=== PATIENT | female | born 1975 | race Caucasian/White ===

== ENCOUNTER 2020-03-05 14:23 | Outpatient (REF) | payer BC, SELFPAY ==
--- NOTE | 2020-03-05 | US_ITS ---
EXAMINATION: PELVIC ULTRASOUND CLINICAL INFORMATION: Irregular menses COMPARISON: None TECHNIQUE: Transabdominal and transvaginal pelvic ultrasound was performed. Transvaginal exam was performed for better visualization of the uterus and ovaries. FINDINGS: The uterus is anteverted and anteflexed and measures 7.3 x 3.9 x 4.5 cm in dimension. No focal uterine lesion is seen. Endometrial thickness is normal as measuring 0.6 cm. There is a small amount of fluid in the endocervical canal. The right ovary measures 4 x 2.8 x 1.9 cm and contains a complex cyst with septations and some wall thickening that measures 1.7 x 1.5 x 2.2 cm. The left ovary is normal-appearing and measures 2.8 x 1.5 x 2 cm. There is no fluid in the pelvis. IMPRESSION: 1.7 x 1.5 x 2.2 cm complex right ovarian cyst otherwise unremarkable exam.
== END 2020-03-05 14:24 | disposition home or self-care (01) ==
LOC: HO.US 14:23
PROVIDERS: Visit Provider Advanced Practice Midwife
DX: N92.6 Irregular menstruation, unspecified (principal); N83.291 Other ovarian cyst, right side
CPT/HCPCS: 76830; 76856

== ENCOUNTER 2020-03-16 16:23 | Outpatient (REF) | payer BC, SELFPAY ==
[2020-03-20 22:56] LABS: CA-125 6 U/mL (<35)
== END 2020-03-16 16:24 | disposition home or self-care (01) ==
LOC: HO.LAB 16:23
PROVIDERS: PCP Internal Medicine; Visit Provider Advanced Practice Midwife
DX: N83.291 Other ovarian cyst, right side (principal)
CPT/HCPCS: 86304

== ENCOUNTER 2020-05-10 11:15 | Outpatient (REF) | payer BC, SELFPAY ==
--- NOTE | 2020-05-10 | US_ITS ---
EXAMINATION: ULTRASOUND PELVIS COMPLETE. CLINICAL INFORMATION: Ovarian cyst. COMPARISON: None TECHNIQUE: Transabdominal and transvaginal ultrasound of the pelvis is performed. FINDINGS: The uterus is anteverted and anteflexed measuring 7.4 cm in length, 4.2 cm in AP and 5.1 cm in transverse dimension. Endometrial thickness is 0.5 cm. There are small nabothian cysts seen in the cervix. Right ovary measures 3.9 x 3.1 x 2.3 cm and volume 14.6 mL. There is an anechoic cyst with septation measuring 3.0 x 2.0 x 2.5 cm. There is a small echogenic focus seen. Previously right ovary measured 4.0 x 2.8 x 1.9 cm. Left ovary measures 3.3 x 2.4 x 1.9 cm and volume 7.9 mL. Small corpus luteal cyst is seen measuring 1.9 x 1.4 x 1.6 cm. There are small echogenic foci seen. There is no free fluid in the cul-de-sac. US/US transvaginal IMPRESSION: Unremarkable uterus. Complex cyst right ovary. Corpus luteal cyst left ovary. Small echogenic foci/calcifications seen in both ovaries.
--- NOTE | 2020-05-10 | US_ITS ---
EXAMINATION: ULTRASOUND PELVIS COMPLETE. CLINICAL INFORMATION: Ovarian cyst. COMPARISON: None TECHNIQUE: Transabdominal and transvaginal ultrasound of the pelvis is performed. FINDINGS: The uterus is anteverted and anteflexed measuring 7.4 cm in length, 4.2 cm in AP and 5.1 cm in transverse dimension. Endometrial thickness is 0.5 cm. There are small nabothian cysts seen in the cervix. Right ovary measures 3.9 x 3.1 x 2.3 cm and volume 14.6 mL. There is an anechoic cyst with septation measuring 3.0 x 2.0 x 2.5 cm. There is a small echogenic focus seen. Previously right ovary measured 4.0 x 2.8 x 1.9 cm. Left ovary measures 3.3 x 2.4 x 1.9 cm and volume 7.9 mL. Small corpus luteal cyst is seen measuring 1.9 x 1.4 x 1.6 cm. There are small echogenic foci seen. There is no free fluid in the cul-de-sac. US/US pelvic complete IMPRESSION: Unremarkable uterus. Complex cyst right ovary. Corpus luteal cyst left ovary. Small echogenic foci/calcifications seen in both ovaries.
== END 2020-05-10 11:16 | disposition home or self-care (01) ==
LOC: HO.US 11:15
PROVIDERS: Visit Provider Obstetrics & Gynecology Gynecologic Oncology
DX: N83.291 Other ovarian cyst, right side (principal)
CPT/HCPCS: 76830; 76856

== ENCOUNTER 2020-09-22 08:19 | Outpatient (REF) | payer BC, SELFPAY ==
--- NOTE | ~2020-09-22 | MM_ITS ---
EXAMINATION: MM SCREENING DIGITAL BREAST TOMOSYNTHESIS, BILATERAL CLINICAL INFORMATION: Screening. Asymptomatic. Age 45. No prior breast imaging. No known family history breast cancer. The lifetime risk of breast cancer based on the Tyrer-Cuzick Model is 11%. COMPARISON: None (current study represents initial baseline exam). TECHNIQUE: Digital breast tomosynthesis is performed in both the craniocaudal and mediolateral oblique views along with computer-aided detection (CAD). Synthesized 2D images are generated from the tomosynthesis. FINDINGS: There are scattered areas of fibroglandular density (ACR BI-RADS breast composition Category b). The left breast has a smooth nodule mid 6:00 position approximately 0.6 cm size. The right breast has a smooth nodule anterior lower inner quadrant, also around 0.6 cm. Other smaller fibronodular densities are present on each side. There is no architectural abnormality. No abnormal calcifications. The axilla and skin contours are unremarkable. MM/MM tomosynthesis screening BI IMPRESSION: Bilateral solitary smooth nodularity mid 6:00 left breast and anterior lower inner right breast, respectively. As this represents initial baseline exam, patient will be recalled for targeted ultrasound to fully characterize. ASSESSMENT: BI-RADS 0: Incomplete - Need Additional Imaging Evaluation RECOMMENDATION: 1. Bilateral targeted breast ultrasound. 2. Radiology department staff will contact the patient for additional imaging. This patient's information was entered into a reminder system with a target due date for their next mammogram.
== END 2020-09-22 08:20 | disposition home or self-care (01) ==
LOC: HO.MAMMO 08:19
PROVIDERS: PCP Advanced Practice Midwife; Visit Provider Advanced Practice Midwife
DX: Z12.31 Encounter for screening mammogram for malignant neoplasm of breast (principal)
CPT/HCPCS: 77063; 77067

== ENCOUNTER 2020-10-03 14:25 | Outpatient (REF) | payer BC, SELFPAY ==
--- NOTE | ~2020-10-03 | US_ITS ---
EXAMINATION: US DIAGNOSTIC ULTRASOUND BREAST, RIGHT US DIAGNOSTIC ULTRASOUND BREAST, LEFT CLINICAL INFORMATION: Recall from baseline exam for small circumscribed nodule mid 6:00 left breast and small circumscribed nodule anterior lower inner right breast, respectively. Prior history reduction mammoplasty 2002. COMPARISON: Baseline mammography 09/22/2020. TECHNIQUE: Ultrasound of each breast is targeted to the areas of mammographic concern. Grayscale imaging and color Doppler are performed without and with harmonics. FINDINGS: Right: There is a simple cyst 6:00 position 2 cm from nipple measuring just under 6 mm in greatest dimension. There is increased through-transmission of sound. No associated color flow. Left: There is a simple cyst 6:00 position 6 cm from nipple also measuring just under 6 mm in greatest dimension. There is increased through-transmission of sound. No associated color flow. Neither breast shows solid mass or architectural abnormality or focal duct ectasia. No edema tracking in soft tissue planes. Results are discussed with the patient at time of visit. US/US breast LT limited IMPRESSION: Bilateral subcentimeter simple cysts corresponding to finding on recent baseline mammography. ASSESSMENT: BI-RADS 2: Benign RECOMMENDATION: Routine annual mammography screening. This patient's information was entered into a reminder system with a target due date for their next mammogram.
--- NOTE | ~2020-10-03 | US_ITS ---
Diagnostic right breast ultrasound is described in a single combined report with the diagnostic left breast ultrasound under accession number [id number].
== END 2020-10-03 14:26 | disposition home or self-care (01) ==
LOC: HO.MAMMO 14:25
PROVIDERS: Visit Provider Advanced Practice Midwife
DX: N63.10 Unspecified lump in the right breast, unspecified quadrant (principal); N63.20 Unspecified lump in the left breast, unspecified quadrant
CPT/HCPCS: 76642

== ENCOUNTER 2021-06-04 13:38 | Outpatient (REF) | payer BC, SELFPAY ==
[2021-06-11 03:12] LABS: HPV mRNA E6/E7 rflx Not Detected (Not Detected)
== END 2021-06-04 13:39 | disposition home or self-care (01) ==
LOC: HO.LAB 13:38
PROVIDERS: Visit Provider Advanced Practice Midwife
DX: Z01.419 Encounter for gynecological examination (general) (routine) without abnormal findings (principal); F41.8 Other specified anxiety disorders; Z79.899 Other long term (current) drug therapy
CPT/HCPCS: 87624; 88142

== ENCOUNTER 2021-09-25 09:13 | Outpatient (REF) | payer BC, SELFPAY ==
--- NOTE | ~2021-09-25 | MM_ITS ---
EXAMINATION: MM SCREENING DIGITAL BREAST TOMOSYNTHESIS, BILATERAL CLINICAL INFORMATION: Screening. Asymptomatic. The lifetime risk of breast cancer based on the Tyrer-Cuzick Model is 10%. COMPARISON: Mammography: 09/22/2020 (baseline); bilateral targeted breast ultrasound 10/03/2020. TECHNIQUE: Digital breast tomosynthesis is performed in both the craniocaudal and mediolateral oblique views along with computer-aided detection (CAD). Synthesized 2D images are generated from the tomosynthesis. FINDINGS: There are scattered areas of fibroglandular density (ACR BI-RADS breast composition Category b). Parenchymal pattern is similar to initial baseline exam. There is no developing density or interval mass or architectural abnormality. No abnormal calcifications. The small cyst mid 6:00 left breast and lower inner right breast are both slightly decreased in size from baseline exam. The axilla and skin contours are unremarkable. MM/MM tomosynthesis screening BI IMPRESSION: No mammographic evidence of malignancy. ASSESSMENT: BI-RADS 2: Benign RECOMMENDATION: Routine annual mammography screening. This patient's information was entered into a reminder system with a target due date for their next mammogram.
== END 2021-09-25 09:14 | disposition home or self-care (01) ==
LOC: HO.MAMMO 09:13
PROVIDERS: PCP Internal Medicine; Visit Provider Advanced Practice Midwife
DX: Z12.31 Encounter for screening mammogram for malignant neoplasm of breast (principal)
CPT/HCPCS: 77063; 77067

== ENCOUNTER → 2022-08-05 10:34 | Outpatient (BNVA) | payer BC, SELFPAY | PROVIDERS: PCP Internal Medicine; Visit Provider Advanced Practice Midwife | DX: Z13.89 Encounter for screening for other disorder (principal) ==

== ENCOUNTER 2022-08-13 12:56 | Outpatient (REF) | payer BC, SELFPAY ==
--- NOTE | ~2022-08-13 | US_ITS ---
EXAMINATION: US PELVIS CLINICAL INFORMATION: Right-sided ovarian cyst. COMPARISON: None available. TECHNIQUE: Ultrasound of the pelvis is performed using both transabdominal and transvaginal transducers along with Doppler. Transvaginal imaging is performed due to inadequate visualization transabdominally. FINDINGS: UTERUS: The uterus is anteverted and measures 5.9 x 3.5 x 4.5 cm. The double wall endometrial thickness is 0.5 mm. The uterus is smooth in contour and has normal myometrial echogenicity. No visible fibroid. ADNEXA: Both ovaries are visualized. There is normal color flow to the adnexa. There is no ovarian torsion. There is no pelvic ascites or fluid collection. Right ovary measures 2.4 x 0.9 x 2.0 cm for a volume of 2.3 mL and contains multiple subcentimeter cysts. The previously seen 3 cm complex septated cyst is no longer present. Multiple tiny echogenic foci are seen in the ovary some with twinkle artifact. Left ovary measures 3.6 x 1.4 x 3.0 cm for a volume of 7.9 mL and straight multiple cysts the largest 1.1 cm. Multiple tiny echogenic foci are seen within the ovary. US/US pelvic and transvaginal IMPRESSION: 1. Normal-appearing uterus. 2. Resolved right complex ovarian cyst 3. Multiple tiny small physiologic cysts and echogenic foci in both ovaries.
== END 2022-08-13 12:57 | disposition home or self-care (01) ==
LOC: HO.HMGCX 12:56
PROVIDERS: PCP Internal Medicine; Visit Provider Advanced Practice Midwife
DX: N83.291 Other ovarian cyst, right side (principal)
CPT/HCPCS: 76830; 76856

== ENCOUNTER → 2022-08-25 11:21 | Outpatient (BNVA) | payer BC, SELFPAY | PROVIDERS: PCP Internal Medicine; Visit Provider Advanced Practice Midwife | DX: Z13.89 Encounter for screening for other disorder (principal) ==

== ENCOUNTER 2022-10-01 08:07 | Outpatient (REF) | payer BC, SELFPAY ==
--- NOTE | ~2022-10-01 | MM_ITS ---
EXAMINATION: MM SCREENING DIGITAL BREAST TOMOSYNTHESIS, BILATERAL CLINICAL INFORMATION: Screening. Asymptomatic. Prior history reduction mammoplasty, 2002. The lifetime risk of breast cancer based on the Tyrer-Cuzick Model is 10%. COMPARISON: Mammography: 09/25/2021, 09/22/2020 (baseline); bilateral targeted breast ultrasound 10/03/2020. TECHNIQUE: Digital breast tomosynthesis is performed in both the craniocaudal and mediolateral oblique views along with computer-aided detection (CAD). Synthesized 2D images are generated from the tomosynthesis. FINDINGS: There are scattered areas of fibroglandular density (ACR BI-RADS breast composition Category b). Left breast has new smooth oval 5 mm nodule anterior 7:00 position residing just anterior medial to a known simple cyst 6:00 position. This likely represents another cyst. Patient will be recalled for targeted ultrasound. Left breast incidental simple cyst 6:00 position is decreased in size 2020. Right breast incidental simple cyst anterior lower inner breast which is slightly increased. No architectural abnormality or abnormal calcifications. The axilla and skin contours are unremarkable. MM/MM tomosynthesis screening BI IMPRESSION: Left: -New smooth oval nodule 0.5 cm anterior 7:00 position, likely a cyst. Right: -No mammographic evidence of malignancy. ASSESSMENT: BI-RADS 0: Incomplete - Need Additional Imaging Evaluation RECOMMENDATION: 1. Targeted ultrasound left breast. 2. Radiology department staff will contact the patient for additional imaging. This patient's information was entered into a reminder system with a target due date for their next mammogram.
== END 2022-10-01 08:08 | disposition home or self-care (01) ==
LOC: HO.MAMMO 08:07
PROVIDERS: PCP Internal Medicine; Referring Provider Advanced Practice Midwife; Visit Provider Internal Medicine
DX: Z12.31 Encounter for screening mammogram for malignant neoplasm of breast (principal)
CPT/HCPCS: 77063; 77067

== ENCOUNTER 2022-10-10 13:04 | Outpatient (REF) | payer BC, SELFPAY ==
--- NOTE | ~2022-10-10 | US_ITS ---
EXAMINATION: US DIAGNOSTIC ULTRASOUND BREAST, LEFT CLINICAL INFORMATION: Recall from screening for smooth nodule anterior inferior left breast, likely cyst. COMPARISON: Mammography 10/01/2022, 09/25/2021, breast ultrasound 10/03/2020. TECHNIQUE: Ultrasound left breast is targeted to the inferior breast using grayscale imaging and color Doppler. FINDINGS: There is a small oval cyst 5 x 4 x 3 mm anterior inferior left breast corresponding to the recent mammography. There is increased through-transmission of sound. No associated color flow. No solid mass or architectural abnormality. Results are discussed with the patient at time of visit. US/US breast LT limited IMPRESSION: Small cyst anterior inferior left breast corresponding to recent mammography. ASSESSMENT: BI-RADS 2: Benign RECOMMENDATION: Routine annual mammography screening. This patient's information was entered into a reminder system with a target due date for their next mammogram.
== END 2022-10-10 13:05 | disposition home or self-care (01) ==
LOC: HO.MAMMO 13:04
PROVIDERS: PCP Internal Medicine; Visit Provider Internal Medicine
DX: N60.02 Solitary cyst of left breast (principal)
CPT/HCPCS: 76642

== ENCOUNTER → 2023-10-05 08:00 | Outpatient (BNV) | payer BC, SELFPAY | PROVIDERS: PCP Student in an Organized Health Care Education/Training Program; Visit Provider Radiology Diagnostic Radiology | DX: Z12.31 Encounter for screening mammogram for malignant neoplasm of breast (principal) | CPT/HCPCS: 77063; 77067 ==

== ENCOUNTER 2023-10-05 08:04 | Outpatient (REF) | payer BC, SELFPAY ==
--- NOTE | ~2023-10-05 | MM_ITS ---
EXAMINATION: MM SCREENING DIGITAL BREAST TOMOSYNTHESIS, BILATERAL CLINICAL INFORMATION: Screening. Asymptomatic. The patient is status post breast reduction. COMPARISON: Mammography: This study is compared with prior exams dating back to 2020. TECHNIQUE: Digital breast tomosynthesis is performed in both the craniocaudal and mediolateral oblique views along with computer-aided detection (CAD). Synthesized 2D images are generated from the tomosynthesis. FINDINGS: There are scattered areas of fibroglandular density (ACR BI-RADS breast composition Category b). There are no significant masses, abnormal calcifications, or other abnormalities. MM/MM tomosynthesis screening BI IMPRESSION: No mammographic evidence of malignancy. ASSESSMENT: BI-RADS BI-RADS 1 - Negative RECOMMENDATION: Routine annual mammography screening. 1 year F/U This examination should not preclude the clinical evaluation of a suspicious palpable abnormality. This patient's information was entered into a reminder system with a target due date for their next mammogram.
== END 2023-10-05 08:05 | disposition home or self-care (01) ==
LOC: HO.MAMMO 08:04
PROVIDERS: PCP Student in an Organized Health Care Education/Training Program; Visit Provider Internal Medicine
DX: Z12.31 Encounter for screening mammogram for malignant neoplasm of breast (principal)
CPT/HCPCS: 77063; 77067

== ENCOUNTER 2023-12-18 13:30 | Outpatient (AMB) | payer BC, SELFPAY ==
--- NOTE | 2023-12-18 13:32 | MHC.OFFVIS ---
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 Doing well with no concerns. She tries to eat healthy and stays active with exercise. Admits to vaping with nicotine. She denies any contraindications to control such as: migraines with aura, history of DVT or pulmonary emboli, high blood pressure, liver disease, thrombolic disorders, Lupus, +CATA, or breast cancer. Currently on [place]. Admits to abnormal bleeding cycles when she forgets her pill and has done that is several times over the last few months. Rarely sexually active and not concerned about risks. She denies vaginal itching and irritation. STI screening offered; she accepts. Denies family history of breast or colon cancer. breast cancer-[facility] [place]. Last pap smear 2020, negative. Mammogram: 2023. [facility] Medical History Bilateral breast cysts ROSEY III (cervical intraepithelial neoplasia III) Migraine with aura Exercise-induced asthma Ankylosing spondylitis Depression with anxiety Complex cyst of right ovary Surgical History History of loop electrical excision procedure (LEEP) Hx of bilateral breast reduction surgery H/O wrist surgery Family History Maternal Grandmother Ovarian cancer Throat cancer Social History (Updated 12/18/23 @ 14:38 by Lorin Noe CNM) Alcohol intake: never Patient Tobacco Use Status: Never used Tobacco e-Cigarette/Vaping Use: Currently Using Sexual orientation: Straight/Heterosexual Gender identity: Female Female Reproductive History Menstrual Duration of menses: 6-7 days Date of last menstrual period: 11/19/23 Total pregnancies: 2 Full term: 1 Number of Living Children: 1 Date of last pap smear: 06/04/21 (neg pap and hpv) History of abnormal pap smear: Yes (03/20 ascus +hpv 05/20 colpo rosey 3 06/21 leep rosey 2) Date of Mammogram: 10/05/23 (Birad 1) Review of Systems Const All systems reviewed & are unremarkable except as noted in HPI and below Reports as per HPI Eyes Reports no additional complaints ENT Reports no additional complaints Card Reports no additional complaints Resp Reports no additional complaints GI Reports as per HPI and Reports no additional complaints Reports as per HPI Musc Reports no additional complaints Skin/Breast Reports as per HPI Neuro Reports no additional complaints Psych Reports no additional complaints Endo Reports no additional complaints Max/Lymph Reports no additional complaints Aller/Immun Reports no additional complaints Physical Exam Vital Signs: Last Vital Signs BP 120/84 12/18/23 13:40 BMI result Body Mass Index 34.2 Const General: cooperative, healthy appearing, no acute distress, well developed and alert Orientation/consciousness: patient oriented x3 HEENT Head: Yes normal to inspection Eyes General: appearance normal, both eyes and all related structures Neck Neck: Yes normal visual inspection Thyroid: Thyroid normal Chest Chest palpation & inspection: normal inspection of the chest and other (no puckering, dimpling, peau de orange, retraction, discharge, masses) Breast/axilla inspection: normal inspection of the breasts Breast/axilla palpation: normal palpation of the breasts Resp Effort & Inspection: normal respiratory effort GI Inspection: Yes normal to inspection Palpation (GI): Soft to palpation Rectal Exam - Female: deferred General: Yes bladder normal to palpation External Female Exam: normal external appearance and normal appearance of the urethra Speculum Exam - Vagina: normal appearance of the vagina, normal palpation and normal vaginal discharge Speculum Exam - Cervix: normal appearance of the cervix and normal palpation Bimanual exam- vagina & uterus: normal bimanual exam, normal palpation, uterine size normal, bladder normal to palpation, normal palpation and non-tender Bimanual Exam- Adnexa, other: no masses Skin General skin exam: no rashes or lesions noted Rashes: no rashes Neuro General: patient oriented x3 Cognition (Neuro): normal cognition Extrem General: Yes normal to inspection Psych Attitude: cooperative Thought process: Normal thought process present Assessment & Plan Assessment & Plan (1) Encounter for well woman exam with routine gynecological exam: Code(s): Z01.419 - Encounter for gynecological examination (general) (routine) without abnormal findings Category: Medical Plan Discussed: Current recommendations for pap smears per ASCCP guidelines. Breast awareness and periodic breast exams. Maintain a healthy lifestyle including a well balanced diet and routine exercise. Mammogram yearly. Plan pelvic ultrasound to observe for any abnormalities including polyps or fibroids, follow up for test results in person. Most likely bleeding is due to missed pills, advised to consider other control measures like a Mirena IUD. Colonoscopy >45, or at risk sooner. control hormone use warnings: go to ER if and loss of vision, blindness, severe headache, chest pain or difficulty breathing, severe abdominal pain, or any pain or swelling in an extremity. Patient verbalizes understanding and agrees to the plan of care. She was given opportunity to ask questions and all questions were answered to the best of my ability. 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 This note is constructed using voice recognition software. While every effort has been made to ensure accuracy, chief cook errors may have been included. Orders: Orders Bacterial Vaginosis Panel Today N93.9 - Abnormal uterine and vaginal bleeding, unspecified US pelvic and transvaginal Today N93.9 - Abnormal uterine and vaginal bleeding, unspecified PAP + HPV E6/E7 rfx 18/45 Today Z01.419 - Encounter for gynecological examination (general) (routine) without abnormal findings CT NG by PCR Today N93.9 - Abnormal uterine and vaginal bleeding, unspecified Medications: Refilled norethindrone (contraceptive) 0.35 mg PO DAILY 90 tabs 4RF Coding Level of Care Code Est Pt Prev Care 40-64y(72521) Diagnoses Encounter for well woman exam with routine gynecological exam Z01.419
[2023-12-18 13:40] VITALS: BP 120/84; BMI 34.2
== END 2023-12-18 14:21 | disposition home or self-care (01) ==
PROVIDERS: PCP Student in an Organized Health Care Education/Training Program; Visit Provider Advanced Practice Midwife
DX: Z01.419 Encounter for gynecological examination (general) (routine) without abnormal findings (principal)
CPT/HCPCS: 99396

== ENCOUNTER 2023-12-18 13:30 | Outpatient (REF) | payer BC, SELFPAY ==
[2023-12-19 05:45] LABS: CT PCR NOT DETECTED (Not Detect.); NG PCR NOT DETECTED (Not Detect.)
[2023-12-19 09:49] LABS: Bacterial Vaginosis PCR NEGATIVE (Negative); Candida Group PCR NOT DETECTED (Not Detect); Candida glab krusei PCR NOT DETECTED (Not Detect); Trichomonas vaginalis PCR NOT DETECTED (Not Detect)
[2023-12-22 09:58] LABS: HPV mRNA E6/E7 Not Detected (Not Detected)
== END 2023-12-18 13:31 | disposition home or self-care (01) ==
LOC: HO.LAB 13:30
PROVIDERS: PCP Student in an Organized Health Care Education/Training Program; Visit Provider Advanced Practice Midwife
DX: Z01.419 Encounter for gynecological examination (general) (routine) without abnormal findings (principal); Z11.51 Encounter for screening for human papillomavirus (HPV); N93.9 Abnormal uterine and vaginal bleeding, unspecified; Z20.2 Contact with and (suspected) exposure to infections with a predominantly sexual mode of transmission
CPT/HCPCS: 0352U; 36415; 87491; 87591; 87624; 88175

== ENCOUNTER 2023-12-18 14:09 | Outpatient (REF) | payer BC, SELFPAY | END 2023-12-18 14:10 | disposition home or self-care (01) | LOC: HO.LNP 14:09 | PROVIDERS: Visit Provider Advanced Practice Midwife | DX: Z13.89 Encounter for screening for other disorder (principal) ==

== ENCOUNTER 2023-12-22 13:50 | Outpatient (REF) | payer BC, SELFPAY ==
--- NOTE | ~2023-12-22 | US_ITS ---
EXAMINATION: US PELVIS CLINICAL INFORMATION: Dysfunctional uterine bleeding. LMP early November. COMPARISON: 08/13/2022 TECHNIQUE: Ultrasound of the pelvis is performed using both transabdominal and transvaginal transducers along with Doppler. Transvaginal imaging is performed due to inadequate visualization transabdominally. FINDINGS: Uterus: The uterus is anteverted and retroflexed. The uterus measures 7.5 x 3.8 x 4.8 cm. Uterine echotexture is heterogeneous. The endometrial stripe measures 0.5 cm in thickness. Adnexa: The right ovary measures 2.7 x 1.5 x 2.2 cm for a volume of 4.7 mL. There are few echogenic foci in the right ovary. The left ovary measures 2.0 x 1.1 x 1.4 cm for a volume of 1.6 mL. There are few echogenic foci in the left ovary. No free fluid in the pelvis or focal fluid collection. US/US pelvic and transvaginal IMPRESSION: Heterogeneous myometrium.
== END 2023-12-22 13:51 | disposition home or self-care (01) ==
LOC: HO.US 13:50
PROVIDERS: PCP Student in an Organized Health Care Education/Training Program; Visit Provider Advanced Practice Midwife
DX: N93.9 Abnormal uterine and vaginal bleeding, unspecified (principal)
CPT/HCPCS: 76830; 76856

== ENCOUNTER 2024-04-13 10:57 | Outpatient (AMB) | payer BC, SELFPAY ==
--- NOTE | 2024-04-13 10:59 | MHC.OFFVIS ---
Vital Signs 04/13/24 11:00 Height 5 ft 8 in Weight 226 lb 6 oz BMI 34.4 BP 138/78 Blood Pressure Location Lt brachial Position Sitting Intake Visit Reasons: Ultra sound follow up/ emb Skip Tender Required: No Hand Engraver: Hand Engraver Present Allergies nitrofurantoin Allergy (Severe, Verified 12/18/23 13:45) Facial Swelling hydrocodone [Vicodin] Allergy (Unknown, Verified 12/18/23 13:40) itchy/vomit morphine [Morphine] Allergy (Unknown, Verified 12/18/23 13:40) ITCHING, itchy/vomit Is last menstrual period known: Yes Last menstrual period: 03/30/24 Post menopausal: Yes Patient : No Do you need a note to return to daycare/school/sports/work: No HPI Comments Details: Patient is here today for a follow up pelvic ultrasound. History of abnormal bleeding cycles after forgetting her control pills-currently taking progesterone only brand. Taking progesterone only pills due to history of migraines with aura. She is currently not interested in changing to a Mirena IUD. She reports now that she has focused and been able to take her pill on time she has not had any further bleeding issues. Previous home test was negative. Current vape user, interested in quitting. Has a new job she is hoping her stress will improve. [facility] Medical History Bilateral breast cysts ROSEY III (cervical intraepithelial neoplasia III) Migraine with aura Exercise-induced asthma Ankylosing spondylitis Depression with anxiety Surgical History History of loop electrical excision procedure (LEEP) Hx of bilateral breast reduction surgery H/O wrist surgery Family History Maternal Grandmother Ovarian cancer Throat cancer Social History Alcohol intake: never Patient Tobacco Use Status: Never used Tobacco e-Cigarette/Vaping Use: Currently Using Sexual orientation: Straight/Heterosexual Gender identity: Female Female Reproductive History Menstrual Date of last menstrual period: 03/30/24 control method: pills Total pregnancies: 2 Full term: 1 Number of Living Children: 1 Ab induced: 1 History of STI: No History of abnormal mammogram: No Review of Systems Const All systems reviewed & are unremarkable except as noted in HPI and below Endo Reports no additional complaints Physical Exam Const General: cooperative, healthy appearing and no acute distress Psych Appearance: well kempt Attitude: cooperative Thought process: Normal thought process present Results AMB Test Urine AMB Test Urine Negative Last Edit by Lindsey Wesley LPN on 04/13/24 11:17 Results Reviewed Results Reviewed: [address] [address] Ultrasound Report Signed Patient: Lindsey Aguilar MR#: [id number] : 1975 Acct:[id number] Age/Sex: 48 / F ADM Date: 12/22/23 Loc: HO.US Attending Dr: Lorin Noe CNM Ordering Physician: Lorin Noe CNM Date of Service: 12/22/23 Procedure(s): US pelvic and transvaginal Accession Number(s): [id number] cc: Sylvia Matthews MD; Lorin Noe CNM~ EXAMINATION: US PELVIS CLINICAL INFORMATION: Dysfunctional uterine bleeding. LMP early November. COMPARISON: 08/13/2022 TECHNIQUE: Ultrasound of the pelvis is performed using both transabdominal and transvaginal transducers along with Doppler. Transvaginal imaging is performed due to inadequate visualization transabdominally. FINDINGS: Uterus: The uterus is anteverted and retroflexed. The uterus measures 7.5 x 3.8 x 4.8 cm. Uterine echotexture is heterogeneous. The endometrial stripe measures 0.5 cm in thickness. Adnexa: The right ovary measures 2.7 x 1.5 x 2.2 cm for a volume of 4.7 mL. There are few echogenic foci in the right ovary. The left ovary measures 2.0 x 1.1 x 1.4 cm for a volume of 1.6 mL. There are few echogenic foci in the left ovary. No free fluid in the pelvis or focal fluid collection. US/US pelvic and transvaginal IMPRESSION: Heterogeneous myometrium. 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 Continue taking POP on time report any unscheduled bleeding. Safe sex condoms if indicated, UPT if indicated with any missed pills. Annual exam scheduled 12/18/2024. Mammogram scheduled 10/18/2024. Encouraged to stop vaping and use other alternatives for stress reduction and coping- she prefers to be outside in nature andreading books. All of her questions and concerns were addressed to the best of my ability and shared decision making. She is agreeable to the plan of care. This note is constructed using voice recognition software. While every effort has been made to ensure accuracy, airplane gas tank liner assembler errors may have been included. Coding Level of Care Code Est Pt Level 3 (23208) Diagnoses Encounter to discuss test results Z71.2
[2024-04-13 11:00] VITALS: BP 138/78; BMI 34.4
== END 2024-04-13 12:43 | disposition home or self-care (01) ==
LOC: HO.HWS 10:57
PROVIDERS: PCP Student in an Organized Health Care Education/Training Program; Visit Provider Advanced Practice Midwife
DX: Z71.2 Person consulting for explanation of examination or test findings (principal)
CPT/HCPCS: 99213

== ENCOUNTER → 2024-10-10 08:15 | Outpatient (BNV) | payer BC, SELFPAY | PROVIDERS: PCP Student in an Organized Health Care Education/Training Program; Visit Provider Internal Medicine | DX: Z12.31 Encounter for screening mammogram for malignant neoplasm of breast (principal) | CPT/HCPCS: 77063; 77067 ==

== ENCOUNTER 2024-10-10 08:16 | Outpatient (REF) | payer BC, SELFPAY ==
--- OUTSIDE RECORDS SUMMARY | 2024-10-10 08:20 | XMS_ITS | Data Portability ---
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 Patient consented to video & audio visit Patient was located at at home Provider was located in the office. No other persons participated in the telemedicine visit except for the patient unless otherwise indicated here. {{}} Total time of visit was 22 minutes. [email or web address] Not available 07/15/2021 15:43:18 07/31/2021 07/31/2021 This service was provided using telemedicine. Patient consented to video & audio visit Patient was located at at home Provider was located in the office. No other persons participated in the telemedicine visit except for the patient unless otherwise indicated here. {{}} Total time of visit was 22 minutes. [email or web address] Not available 07/31/2021 16:33:28 06/08/2024 06/08/2024 Discussed with patient the signs/symptoms warranted for a return to office visit and/or an ER visit. Patient understood and agreed with the plan. [email or web address] Not available 06/08/2024 13:34:47 Plan of Treatment Reminders Order Date Submit Date Provider Last Modified By Organization Details Last Modified Time Details Appointments FOLLOW UP 1 2024 02:45P Jr WOO MD Not available Not available Not available Lab lipid panel, serum 2024 025 NEW [facility], [address], [place], [address], 08/01/2024 13:28:54 BMP, serum or plasma 2024 025 NEW [facility], [address], [place], [address], 08/01/2024 13:28:53 CBC w/ auto diff 2024 025 NEW [facility], [address], [place], [address], 08/01/2024 13:28:53 TSH, ultra-sen sitive, serum 2024 025 NEW [facility], [address], [place], [address], 08/01/2024 13:28:54 beta-HCG, qualitati ve, serum or plasma 2024 025 NEW [facility] (Centralized Electronic Ordering - All Locations), Patient Can Go To The Location Of Their Choice, [id number] 06/09/2024 08:08:33 strep group A, DNA, swab 2024 025 NEW In-Office Order, Internal Use Only DO Not Attach Compendium DO Not Attach Compendium, Do Not Delete/merge, [id number] 06/08/2024 13:46:30 ESR (erythroc yte sedimenta tion rate), blood 2022 023 NEW [facility], [address], [address], [place], [address], 04/01/2023 04:19:48 C-reactiv e protein, quantitat lissette, serum or plasma 2022 023 NEW [facility], [address], [address], [place], [address], 04/01/2023 03:51:29 lipid panel, serum 2022 023 NEW [facility], [address], [address], [place], [address], 04/01/2023 03:51:31 BMP, serum or plasma 2022 023 NEW [facility], [address], [address], [place], [address], 04/01/2023 03:51:27 CBC w/ auto diff 2022 023 [facility], [address], [address], [place], [address], 04/01/2023 02:54:07 TSH, serum or plasma 2022 023 NEW [facility], [address], [address], [place], [address], 04/01/2023 03:55:56 hepatitis C virus Ab, serum 2022 023 [facility], [address], [address], [place], [address], 04/03/2023 07:07:28 urinalysi s, complete 2021 022 [facility], [address], [address], [place], [address], 07/31/2021 20:00:27 culture, urine 2021 022 NEW [facility], [address], [address], [place], [address], 08/01/2021 19:52:15 Referral rheumatol ogist referral - ankylosin g spondylit is. please evaluate 2021 022 [email or web address] Russ Peña MD, [address], [place], [address], 07/16/2021 09:17:31 Procedures colonosco py screening (PROC) 2024 025 [email or web address] Not available 08/01/2024 13:50:10 colonosco py screening (PROC) 2022 023 [email or web address] [facility], [address] [place], [address], 03/31/2023 11:35:55 Surgeries None recorded. Imaging MAMMO, screening , bilateral 2024 025 [email or web address] Not available 08/01/2024 13:34:47 Medication Orders ProAir HFA 90 mcg/actua tion aerosol inhaler 2024 025 [id number], [address], [place], [id number], 08/01/2024 13:29:04 betametha sone dipropion ate 0.05 % topical ointment 2024 025 [facility], [address], [place], [id number], 08/01/2024 13:29:08 ondansetr on 4 mg disintegr ating tablet 2024 025 [email or web address] [facility] #48855, [address], [place], [id number], 06/08/2024 13:48:31 cyclobenz aprine 10 mg tablet 2022 023 [facility], [address], [place], [id number], 03/16/2023 14:49:39 buspirone 7.5 mg tablet 2022 023 [facility] #57994, [address], [place], [id number], 03/16/2023 19:48:11 sertralin e 100 mg tablet 2021 022 [email or web address] [facility] #02928, [address], [place], [id number], 08/01/2024 13:10:08 Patient TargetsNo targets recorded. Patient Instructions Encounter Date Encounter Id Patient Instructions Last Modified By Organization Details Last Modified Time 07/15/2021 [id number] ankylosing spondylitis: care instructions [email or web address] Not available 07/15/2021 15:55:26 ankylosing spondylitis: exercises [email or web address] Not available 07/15/2021 15:55:26 blood in the urine: care instructions [email or web address] Not available 07/15/2021 15:55:26 07/31/2021 [id number] anxiety disorder: care instructions [email or web address] Not available 07/31/2021 16:34:14 03/16/2023 [id number] Well Visit, Ages 18 to 65: Care Instructions Not available 03/16/2023 14:49:30 starting a weight loss plan: care instructions [email or web address] Not available 03/18/2023 09:38:30 08/01/2024 [id number] irritable bowel syndrome: care instructions Not available 08/01/2024 13:28:42 ankylosing spondylitis: care instructions Not available 08/01/2024 13:28:42 ankylosing spondylitis: exercises Not available 08/01/2024 13:28:41 starting a weight loss plan: care instructions Not available 08/01/2024 13:32:51 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 please evaluate Referring Physician: Milena Singleton, Family Medicine, Encounter Date: 07/15/2021 Results Created Date Observation Date Name Description Value Unit Range Abnormal Flag Note LastModifiedBy Organization Detail LastModifiedTime 07/09/19 22 07/09/2021 UA W/REF TAHIRA CULTU RE appear/color YELLO W TURBI D Not Available [facility] (Centralized Electronic Ordering - All Locations) Patient Can Go To The Location Of Their Choice, 07/09/2021 16:58:45 07/09/1907/09/2021 UA W/REF TAHIRA CULTU RE sp. gravity 1.027 (1.002 -1.030 ) Not Available [facility] (Centralized Electronic Ordering - All Locations) Patient Can Go To The Location Of Their Choice, 07/09/2021 16:58:45 07/09/1907/09/2021 UA W/REF TAHIRA CULTU RE urine pH 6.0 (5.0-8 .0) Not Available [facility] (Centralized Electronic Ordering - All Locations) Patient Can Go To The Location Of Their Choice, 07/09/2021 16:58:45 07/09/1907/09/2021 UA W/REF TAHIRA CULTU RE urine albumin 1+ (neg) abnormal Not Available [facility] ([facility] Order[facility] - All Locations) Patient Can Go To The Location Of Their Choice, 07/09/2021 16:58:45 07/09/1907/09/2021 UA W/REF TAHIRA CULTU RE urine glucose NEGATI VE (neg) Not Available [facility] (Centralized Electronic Ordering - All Locations) Patient Can Go To The Location Of Their Choice, 07/09/2021 16:58:45 07/09/1907/09/2021 UA W/REF TAHIRA CULTU RE urine ketones NEGATI VE (neg) Not Available [facility] (Centralized Electronic Ordering - All Locations) Patient Can Go To The Location Of Their Choice, 07/09/2021 16:58:45 07/09/1907/09/2021 UA W/REF TAHIRA CULTU RE urine bilirubin NEGATI VE (neg) Not Available [facility] (Centralized Electronic Ordering - All Locations) Patient Can Go To The Location Of Their Choice, 07/09/2021 16:58:45 07/09/1907/09/2021 UA W/REF TAHIRA CULTU RE urine hemoglobin 1+ (neg) abnormal Not Available [facility] ([facility] - All Locations) Patient Can Go To The Location Of Their Choice, 07/09/2021 16:58:45 07/09/1907/09/2021 UA W/REF TAHIRA CULTU RE urine nitrite NEGATI VE (neg) Not Available [facility] (Centralized Electronic Ordering - All Locations) Patient Can Go To The Location Of Their Choice, 07/09/2021 16:58:45 07/09/19 22 07/09/2021 UA W/REF TAHIRA CULTU RE urine leukocyte 1+ (neg) abnormal Not Available [facility] ([facility] Ordering - All Locations) Patient Can Go To The Location Of Their Choice, 07/09/2021 16:58:45 07/09/19 22 07/09/2021 UA W/REF TAHIRA CULTU RE urobilinogen NORMAL mg/dL (norm) Not Available [facility] (Central[facility] Ordering - All Locations) Patient Can Go To The Location Of Their Choice, 07/09/2021 16:58:45 07/09/19 22 07/09/2021 UA W/REF TAHIRA CULTU RE urine WBCs 6 /hpf (0-5) high Not Available [facility] (Centralized Electronic Ordering - All Locations) Patient Can Go To The Location Of Their Choice, 07/09/2021 16:58:45 07/09/19 22 07/09/2021 UA W/REF TAHIRA CULTU RE urine RBCs 4 /hpf (0-3) high Not Available [facility] (Centralized Electronic Ordering - All Locations) Patient Can Go To The Location Of Their Choice, 07/09/2021 16:58:45 07/09/19 22 07/09/2021 UA W/REF TAHIRA CULTU RE bacteria SLIGHT hpf (neg) abnormal Not Available [facility] (Centralized Electronic Ordering - All Locations) Patient Can Go To The Location Of Their Choice, 07/09/2021 16:58:45 07/09/19 22 07/09/2021 UA W/REF TAHIRA CULTU RE mucus SLIGHT /lpf Not Available [facility] (Centralized Electronic Ordering - All Locations) Patient Can Go To The Location Of Their Choice, 07/09/2021 16:58:45 07/09/19 22 07/09/2021 UA W/REF TAHIRA CULTU RE squamous epith 25 /hpf (0-8) high Not Available [facility] ([facility] Ordering - All Locations) Patient Can Go To The Location Of Their Choice, 07/09/2021 16:58:45 07/09/19 22 07/09/2021 UA W/REF TAHIRA CULTU RE clarity TURBID (clear ) abnormal Not Available [facility] (Centralized Electronic Ordering - All Locations) Patient Can Go To The Location Of Their Choice, 07/09/2021 16:58:45 07/09/19 22 07/09/2021 UA W/REF TAHIRA CULTU RE culture indication CULTUR E INDICA JOANN Not Available [facility] (Centralized Electronic Ordering - All Locations) Patient Can Go To The Location Of Their Choice, 07/09/2021 16:58:45 07/09/19 22 07/09/2021 LIPID PANEL cholesterol, total 197 mg/dL (<200) Not Available [facility] ([facility] Ordering - All Locations) Patient Can Go To The Location Of Their Choice, 07/09/2021 18:24:00 07/09/1907/09/2021 LIPID PANEL triglyceride 155 mg/dL (<150) high Not Available [facility] ([facility] Ordering - All Locations) Patient Can Go To The Location Of Their Choice, 07/09/2021 18:24:00 07/09/1907/09/2021 LIPID PANEL HDL chol 52 mg/dL (>39) Not Available [facility] (Centralized Electronic Ordering - All Locations) Patient Can Go To The Location Of Their Choice, 07/09/2021 18:24:00 07/09/1907/09/2021 LIPID PANEL LDL cholesterol, calculated 114 mg/dL (0-130 ) Not Available [facility] (Centralized Electronic Ordering - All Locations) Patient Can Go To The Location Of Their Choice, 07/09/2021 18:24:00 07/09/1907/09/2021 LIPID PANEL non HDL cholesterol (calc) 145 mg/dL (<160) Not Available [facility] ([facility] Ordering - All Locations) Patient Can Go To The Location Of Their Choice, 07/09/2021 18:24:00 07/09/1907/09/2021 FREE T4 free T4 0.79 NG/dL (0.70- 1.80) Not Available [facility] (Centralized Electronic Ordering - All Locations) Patient Can Go To The Location Of Their Choice, 07/09/2021 18:29:52 07/09/19 22 07/09/2021 TSH TSH 1.38 uIU/m L (0.4-4 .2) Not Available [facility] (Centralized Electronic Ordering - All Locations) Patient Can Go To The Location Of Their Choice, 07/09/2021 18:29:53 07/09/19 22 07/09/2021 URINE CULTU RE specimen description URINE Not Available [facility] ([facility] Locations) Patient Can Go To The Location Of Their Choice, 07/11/2021 07:19:56 07/09/19 22 07/09/2021 URINE CULTU RE special requests NONE Reflex ed from [id number] Not Available [facility] (Centralized Electronic Ordering - All Locations) Patient Can Go To The Location Of Their Choice, 07/11/2021 07:19:56 07/09/1907/11/2021 URINE CULTU RE culture Mixed bacter ial rafi, indica tive of urogen ital contam inatio n. Not Available [facility] (Centralized Electronic Ordering - All Locations) Patient Can Go To The Location Of Their Choice, 07/11/2021 07:19:56 07/09/1907/11/2021 URINE CULTU RE report status FINAL 2021 Not Available [facility] (Centralized Electronic Ordering - All Locations) Patient Can Go To The Location Of Their Choice, 07/11/2021 07:19:56 08/01/1907/31/2021 LAB ONLY URINA LYSIS appear/color YELLO W TURBI D Not Available [facility] (Centralized Electronic Ordering - All Locations) Patient Can Go To The Location Of Their Choice, 07/31/2021 20:00:27 08/01/19 22 07/31/2021 LAB ONLY URINA LYSIS sp. gravity 1.025 (1.002 -1.030 ) Not Available [facility] (Centralized Electronic Ordering - All Locations) Patient Can Go To The Location Of Their Choice, [id number] 07/31/2021 20:00:27 08/01/19 22 07/31/2021 LAB ONLY URINA LYSIS urine pH 6.0 (5.0-8 .0) Not Available [facility] (Centralized Electronic Ordering - All Locations) Patient Can Go To The Location Of Their Choice, 07/31/2021 20:00:27 08/01/19 22 07/31/2021 LAB ONLY URINA LYSIS urine albumin TRACE (neg) abnormal Not Available [facility] ([facility] Ordering - All Locations) Patient Can Go To The Location Of Their Choice, 07/31/2021 20:00:27 08/01/19 22 07/31/2021 LAB ONLY URINA LYSIS urine glucose NEGATI VE (neg) Not Available [facility] (Centralized Electronic Ordering - All Locations) Patient Can Go To The Location Of Their Choice, 07/31/2021 20:00:27 08/01/19 22 07/31/2021 LAB ONLY URINA LYSIS urine ketones NEGATI VE (neg) Not Available [facility] (Centralized Electronic Ordering - All Locations) Patient Can Go To The Location Of Their Choice, 07/31/2021 20:00:27 08/01/1907/31/2021 LAB ONLY URINA LYSIS urine bilirubin NEGATI VE (neg) Not Available [facility] (Centralized Electronic Ordering - All Locations) Patient Can Go To The Location Of Their Choice, 07/31/2021 20:00:27 08/01/19 22 07/31/2021 LAB ONLY URINA LYSIS urine hemoglobin NEGATI VE (neg) Not Available [facility] (Centralized Electronic Ordering - All Locations) Patient Can Go To The Location Of Their Choice, 07/31/2021 20:00:27 08/01/1907/31/2021 LAB ONLY URINA LYSIS urine nitrite NEGATI VE (neg) Not Available [facility] (Centralized Electronic Ordering - All Locations) Patient Can Go To The Location Of Their Choice, 07/31/2021 20:00:27 08/01/19 22 07/31/2021 LAB ONLY URINA LYSIS urine leukocyte 1+ (neg) abnormal Not Available [facility] ([facility] Ordering - All Locations) Patient Can Go To The Location Of Their Choice, 07/31/2021 20:00:27 08/01/19 22 07/31/2021 LAB ONLY URINA LYSIS urobilinogen NORMAL mg/dL (norm) Not Available [facility] ([facility] Order[facility] - All Locations) Patient Can Go To The Location Of Their Choice, 07/31/2021 20:00:27 08/01/19 22 07/31/2021 LAB ONLY URINA LYSIS urine WBCs 9 /hpf (0-5) high Not Available [facility] (Centralized Electronic Ordering - All Locations) Patient Can Go To The Location Of Their Choice, 07/31/2021 20:00:27 08/01/19 22 07/31/2021 LAB ONLY URINA LYSIS urine RBCs NONE SEEN /hpf (0-3) Not Available [facility] (Centralized Electronic Ordering - All Locations) Patient Can Go To The Location Of Their Choice, 07/31/2021 20:00:27 08/01/19 22 07/31/2021 LAB ONLY URINA LYSIS bacteria MODERA TE hpf (neg) abnormal Not Available [facility] (Centralized Electronic Ordering - All Locations) Patient Can Go To The Location Of Their Choice, 07/31/2021 20:00:27 08/01/1907/31/2021 LAB ONLY URINA LYSIS mucus MODERA TE /lpf Not Available [facility] (Centralized Electronic Ordering - All Locations) Patient Can Go To The Location Of Their Choice, 07/31/2021 20:00:27 08/01/19 22 07/31/2021 LAB ONLY URINA LYSIS squamous epith 11 /hpf (0-8) high Not Available [facility] ([facility] Ordering - All Locations) Patient Can Go To The Location Of Their Choice, 07/31/2021 20:00:27 08/01/1907/31/2021 URINE CULTU RE specimen description CLEAN CATCH (URINE ) Not Available [facility] (Centralized Electronic Ordering - All Locations) Patient Can Go To The Location Of Their Choice, 08/01/2021 19:52:15 08/01/19 22 07/31/2021 URINE CULTU RE special requests NONE Not Available [facility] ([facility] Ordering - All Locations) Patient Can Go To The Location Of Their Choice, 08/01/2021 19:52:15 08/01/19 22 08/01/2021 URINE CULTU RE culture NO GROWTH Not Available [facility] (Centralized Electronic Ordering - All Locations) Patient Can Go To The Location Of Their Choice, 08/01/2021 19:52:15 08/01/19 22 08/01/2021 URINE CULTU RE report status FINAL 2021 Not Available [facility] (Centralized Electronic Ordering - All Locations) Patient Can Go To The Location Of Their Choice, [id number] 08/01/2021 19:52:15 03/31/2004/01/2023 COMPL ETE CBC WITH DIFF WBC 7.5 K/mm3 (4.0-1 1.0) Not Available [facility] (Centralized Electronic Ordering - All Locations) Patient Can Go To The Location Of Their Choice, [id number] 04/01/2023 02:54:07 03/31/2004/01/2023 COMPL ETE CBC WITH DIFF RBC 4.08 M/mm3 (4.20- 5.40) low Not Available [facility] (Centralized Electronic Ordering - All Locations) Patient Can Go To The Location Of Their Choice, [id number] 04/01/2023 02:54:07 03/31/2004/01/2023 COMPL ETE CBC WITH DIFF HGB 12.5 gm/dL (11.7- 15.5) Not Available [facility] (Centralized Electronic Ordering - All Locations) Patient Can Go To The Location Of Their Choice, [id number] 04/01/2023 02:54:07 03/31/2004/01/2023 COMPL ETE CBC WITH DIFF HCT 38.8 % (35.7- 45.8) Not Available [facility] (Centralized Electronic Ordering - All Locations) Patient Can Go To The Location Of Their Choice, [id number] 04/01/2023 02:54:07 03/31/2004/01/2023 COMPL ETE CBC WITH DIFF MCV 95.1 fL (80.0- 100.0) Not Available [facility] (Centralized Electronic Ordering - All Locations) Patient Can Go To The Location Of Their Choice, [id number] 04/01/2023 02:54:07 03/31/2004/01/2023 COMPL ETE CBC WITH DIFF MCH 30.6 pg (27.0- 34.0) Not Available [facility] (Centralized Electronic Ordering - All Locations) Patient Can Go To The Location Of Their Choice, [id number] 04/01/2023 02:54:07 03/31/2004/01/2023 COMPL ETE CBC WITH DIFF MCHC 32.2 g/dL (33.0- 37.0) low Not Available [facility] (Centralized [facility] Ordering - All Locations) Patient Can Go To The Location Of Their Choice, [id number] 04/01/2023 02:54:07 03/31/2004/01/2023 COMPL ETE CBC WITH DIFF plt 305 K/mm3 (150-4 60) Not Available [facility] (Centralized Electronic Ordering - All Locations) Patient Can Go To The Location Of Their Choice, [id number] 04/01/2023 02:54:07 03/31/2004/01/2023 COMPL ETE CBC WITH DIFF RDW-SD 46.2 fL (<47.0 ) Not Available [facility] (Centralized Electronic Ordering - All Locations) Patient Can Go To The Location Of Their Choice, [id number] 04/01/2023 02:54:07 03/31/2004/01/2023 COMPL ETE CBC WITH DIFF MPV 10.6 fL (9.4-1 2.4) Not Available [facility] ([facility]ized [facility] Ordering - All Locations) Patient Can Go To The Location Of Their Choice, [id number] 04/01/2023 02:54:07 03/31/2004/01/2023 COMPL ETE CBC WITH DIFF automated NRBC 0.0 #/100 _WBC' s Not Available [facility] (Centralized [facility] Ordering - All Locations) Patient Can Go To The Location Of Their Choice, [id number] 04/01/2023 02:54:07 03/31/2004/01/2023 COMPL ETE CBC WITH DIFF abs. NRBC 0.0 K/mm3 Not Available [facility] (Centralized Electronic Ordering - All Locations) Patient Can Go To The Location Of Their Choice, [id number] 04/01/2023 02:54:07 03/31/2004/01/2023 COMPL ETE CBC WITH DIFF neut # 4.6 K/mm3 (1.3-7 .0) Not Available [facility] (Centralized Electronic Ordering - All Locations) Patient Can Go To The Location Of Their Choice, [id number] 04/01/2023 02:54:07 03/31/2004/01/2023 COMPL ETE CBC WITH DIFF lymph # 1.7 K/mm3 (0.8-3 .1) Not Available [facility] (Centralized Electronic Ordering - All Locations) Patient Can Go To The Location Of Their Choice, 04/01/2023 02:54:07 03/31/2004/01/2023 COMPL ETE CBC WITH DIFF mono# 0.4 K/mm3 (0.4-0 .9) Not Available [facility] ([facility]ized [facility] Ordering - All Locations) Patient Can Go To The Location Of Their Choice, 04/01/2023 02:54:07 03/31/2004/01/2023 COMPL ETE CBC WITH DIFF eo # 0.6 K/mm3 (0.0-0 .4) high Not Available [facility] ([facility]ized [facility] Ordering - All Locations) Patient Can Go To The Location Of Their Choice, 04/01/2023 02:54:07 03/31/2004/01/2023 COMPL ETE CBC WITH DIFF baso # 0.1 K/mm3 (0.0-0 .1) Not Available [facility] ([facility]ized [facility] Ordering - All Locations) Patient Can Go To The Location Of Their Choice, 04/01/2023 02:54:07 03/31/2004/01/2023 COMPL ETE CBC WITH DIFF abs. imm gran 0.0 K/mm3 Not Available [facility] ([facility] Order[facility] - All Locations) Patient Can Go To The Location Of Their Choice, 04/01/2023 02:54:07 03/31/2004/01/2023 COMPL ETE CBC WITH DIFF neut 61.9 % (44-76 ) Not Available [facility] ([facility]ized [facility] Ordering - All Locations) Patient Can Go To The Location Of Their Choice, 04/01/2023 02:54:07 03/31/2004/01/2023 COMPL ETE CBC WITH DIFF lymph 22.4 % (15-43 ) Not Available [facility] ([facility]ized [facility] Ordering - All Locations) Patient Can Go To The Location Of Their Choice, 04/01/2023 02:54:07 03/31/2004/01/2023 COMPL ETE CBC WITH DIFF monocyte 5.8 % (4.5-1 0.5) Not Available [facility] ([facility] Ordering - All Locations) Patient Can Go To The Location Of Their Choice, 04/01/2023 02:54:07 03/31/2004/01/2023 COMPL ETE CBC WITH DIFF eo 8.6 % (0-6) high Not Available [facility] ([facility] Ordering - All Locations) Patient Can Go To The Location Of Their Choice, [id number] 04/01/2023 02:54:07 03/31/2004/01/2023 COMPL ETE CBC WITH DIFF baso 0.8 % (0-2) Not Available [facility] ([facility]ized [facility] Ordering - All Locations) Patient Can Go To The Location Of Their Choice, [id number] 04/01/2023 02:54:07 03/31/2004/01/2023 COMPL ETE CBC WITH DIFF imm gran 0.5 % Not Available [facility] ([facility]ized [facility] Ordering - All Locations) Patient Can Go To The Location Of Their Choice, [id number] 04/01/2023 02:54:07 03/31/2004/01/2023 BASIC METAB OLIC PANEL glucose 80 mg/dL (70-99 ) Not Available [facility] (Centralized Electronic Ordering - All Locations) Patient Can Go To The Location Of Their Choice, [id number] 04/01/2023 03:51:27 03/31/2004/01/2023 BASIC METAB OLIC PANEL BUN 13 mg/dL (6-20) Not Available [facility] ([facility]ized [facility] Ordering - All Locations) Patient Can Go To The Location Of Their Choice, [id number] 04/01/2023 03:51:27 03/31/2004/01/2023 BASIC METAB OLIC PANEL creatinine 0.9 mg/dL (0.5-1 .0) Not Available [facility] ([facility]ized [facility] Ordering - All Locations) Patient Can Go To The Location Of Their Choice, [id number] 04/01/2023 03:51:27 03/31/2004/01/2023 BASIC METAB OLIC PANEL sodium 137 mmol/ L (133-1 45) Not Available [facility] ([facility]ized [facility] Ordering - All Locations) Patient Can Go To The Location Of Their Choice, [id number] 04/01/2023 03:51:27 03/31/2004/01/2023 BASIC METAB OLIC PANEL potassium 4.9 mmol/ L (3.6-5 .2) Not Available [facility] ([facility]ized Electronic Ordering - All Locations) Patient Can Go To The Location Of Their Choice, 04/01/2023 03:51:27 03/31/2004/01/2023 BASIC METAB OLIC PANEL chloride 102 mmol/ L (98-10 7) Not Available [facility] (Centralized Electronic Ordering - All Locations) Patient Can Go To The Location Of Their Choice, 04/01/2023 03:51:27 03/31/2004/01/2023 BASIC METAB OLIC PANEL bicarbonate 27 mmol/ L (22-29 ) Not Available [facility] (Centralized Electronic Ordering - All Locations) Patient Can Go To The Location Of Their Choice, 04/01/2023 03:51:27 03/31/2004/01/2023 BASIC METAB OLIC PANEL anion gap 8 (4-17) Not Available [facility] (Centralized Electronic Ordering - All Locations) Patient Can Go To The Location Of Their Choice, 04/01/2023 03:51:27 03/31/2004/01/2023 BASIC METAB OLIC PANEL calcium 9.0 mg/dL (8.6-1 0.5) Not Available [facility] (Centralized Electronic Ordering - All Locations) Patient Can Go To The Location Of Their Choice, 04/01/2023 03:51:27 03/31/2004/01/2023 BASIC METAB OLIC PANEL estimated GFR creatinine 86 mL/mi n/1.7 3_M2 Creat inine based estim ated glome rular filtr ation (eGFR ) in adult s is calcu lated using the [facility] ation recom boy d 2020 CKD-E PI equat ion. Estim ates GFR from serum creat inine , age and sex. Not Available [facility] (Centralized Electronic Ordering - All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 Individual Who Tested Positive For COVID-19? No [email or web address] Information not available 10/31/2020 Have You Recently Traveled To A COVID-19 High Risk Area Or Gathering In The Last 10 Days? No [email or web address] Information not available 10/31/2020 What Was The Date Of Your Most Recent Tobacco Screening? 08/01/2024 [email or web address] Information not available 08/01/2024 How Many Children Do You Have? 1 Annalyse Information not available 12/21/2018 Do You Use Protection During Sex? No Information not available 10/19/2015 What Is Your Relationship Status? Single [email or web address] Information not available 07/15/2021 Seat Belts Used Routinely Yes [email or web address] Information not available 07/15/2021 Are You Sexually Active? Yes Information not available 10/19/2015 Smoke Alarm In Home Yes [email or web address] Information not available 07/15/2021 At What Age Did You Start Smoking Tobacco? 17 [email or web address] Information not available 04/08/2019 Are You Passively Exposed To Smoke? No [email or web address] Information not available 04/08/2019 Do You Use Sunscreen Routinely? Yes Information not available 02/23/2015 Sex: Unknown Functional Status Question Answer Note LastModified by Organizat ion Details LastModified Time What is your level of alcohol consumption? Occasional Information not available 02/23/2015 Do you or have you ever used smokeless tobacco? Never used smokeless tobacco Information not available 04/08/2019 Are you currently employed? Yes full-fidel e Information not available 01/06/2014 Are you able to walk? YESWOREST [email or web address] Information not available 07/15/2021 Are you able to care for yourself? 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 Current user of electronic cigarettes Information not available 07/15/2021 What is your exercise level? Moderate gym Information not available 12/21/2018 Mental Status None recorded. Family History Relationship Description Onset Age of this Age Resolved Age Notes LastModified by Organization Details LastModified Time Mother Asthma [email or web address] Not available 06/04/2015 15:58:44 Mother Osteoporosis Not td ilable 06/04/2015 15:58:44 Mother Hypercholest erolemia [email or web address] Not available 06/04 15:58:44 Father Alcoholism [email or web address] Not av ailable 07/15/2021 12:25:14 Brother Alcoholism [email or web address] Not a vailable 07/15/2021 12:25:14 Brother Diabetes mellitus [email or web address] Not available 06/04 15:58:44 Paternal Uncle Alcoholism [email or web address] Not available 0 07/15/2021 12:25:14 Maternal Aunt Essential hypertension [email or web address] Not available 07/15/2021 12:25:14 Maternal Aunt Diabetes mellitus Not available 06/04 15:58:44 Maternal Uncle Essential hypertension [email or web address] Not available 07/15/2021 12:25:14 Maternal Grandmother Osteoporosis [email or web address] Not availabl e 06/04/2015 15:58:44 Maternal Grandmother Malignant neoplasm of uterus [email or web address] Not available 12:25:14 Notes:No FH of of breast or colon cancer Medical History Condition Response Coronary Artery Disease N Gout N Other N Blood Diseases N Kidney Stones N Hyperthyroidism N Breast Cancer N mrsa exposure N Hypothyroidism N Depression N COPD N Lung Disease N Developmental or Behavioral Disorders N Defects or Inherited Disease N Breast Problem N Anesthesia Complications N Headaches/Migraines N Varicose Veins N Anxiety Disorder N Muscle, Joint, or Bone Problems Y Obesity N Vision or Eye Problems N Arthritis N Head Injury/Concussion N Polyps N Infertility N Mental Disorder N Congenital Anomalies N Acid Reflux (GERD) N Cancer N Stroke N ADHD N Endometriosis N High Cholesterol N Liver Disease N Headaches N Fibromyalgia N Kidney Disease N Heart Problems N Ear or Hearing Problems N Hospitalizations N Thyroid Problems N GI Problems N Developmental Delay N Acne N Skin Problems N Eating Disorder N Anemia N Constipation N Bladder Problems N Mental Illness N Ovarian Cancer N Diabetes N Bedwetting N Blood Transfusions N Seizures/Epilepsy N Heart Problems/Murmur N Tuberculosis N AIDS/HIV N Congestive Heart Failure (CHF) N Eczema N Diverticulitis N Abuse/Domestic Violence N Asthma Y Allergies N Reflux/GERD N Hepatitis N Heart Disease N Pulmonary Embolism N Hypertension N Chicken Pox N Autism Spectrum Disorder (ASD) N Osteoporosis N Gynecological History Statement/Question Response Date of Last Pap Smear 06/01/2022 Most Recent Mammogram 10/01/2022 Obstetrics History GPAL:G 0 P 0 0 0 0 Immunizations Vaccine Type Date Status Note Provider Nam e and Address Organization Details Recorded Time Influenza, split virus, quadrivalent, preservative 5 completed ALLEN [facility] 02/23/2015 13:12:40 Influenza, split virus, quadrivalent, preservative 6 completed [facility] 07/31/2021 12:39:25 Influenza, split virus, quadrivalent, preservative 7 completed [facility] 07/30/2017 13:53:50 Tdap 5 completed Not Available [facility] 06/18/2019 02:21:44 COVID-19 vaccine, vector-nr, rS-Ad26, PF, 0.5 mL 1 [facility]/31[facility]21 12:38:32 pneumococcal polysaccharide PPV23 5 completed Not Available [facility] 06/18/2019 02:21:42 Influenza, split virus, quadrivalent, PF 9 completed ALLEN [facility] 07/31/2021 12:38:32 COVID-19, mRNA, LNP-S, PF, 100 mcg/0.5mL dose or 50 mcg/0.25mL dose 1 completed ALLEN Co[facility] 07/31/2021 12:39:25 COVID-19, mRNA, LNP-S, PF, 100 mcg/0.5mL dose or 50 mcg/0.25mL dose 1 completed [facility]EN [facility], [facility] 06/08/2024 13:22:18 COVID-19, mRNA, LNP-S, PF, 100 mcg/0.5mL dose or 50 mcg/0.25mL dose 1 completed ALLEN [facility] 06/08/2024 13:22:18 Influenza, split virus, quadrivalent, PF 3 completed ALLEN [facility] 06/08/2024 13:22:10 Influenza, split virus, quadrivalent, PF 1 completed Milena [facility] 03/01/2021 10:32:24 Past Encounters Encounter ID Performer Location Encounter Start Date Encounter Closed Date Diagnosis/Indication Diagnosis SNOMED-CT Code Diagnosis ICD10 Code Diagnosis Note [id number] Milena lemus MD Main Office [address] [place], [place] [address] 01/06/2014 10:34:31 01/06/2014 11:34:52 Neck pain 59307871 chronic, over the years limited rom, never did a course of PT Loss of hair 394238753 h air thinning, will get pt to see dermatolog y Dysmenorrhea 551456176 i rregualr bleeding pt to set up appt [facility] supervisor pumping Asthma 028610201 stable on meds [id number] Milena lemus MD Main Office [address] [facility] [address] [place], [place] [address] 06/08/2014 14:42:27 06/08/2014 15:14:15 Neck pain 99801191 better with manual PT, is doing home therapy, better but need to continue [id number] [facility] [address] [facility] [place], [place] [address] 09/26/2010 00:00:00 [id number] [facility] [facility] [address] [facility] [place] [address] 10/02/2011 00:00:00 [id number] [employer] [address] [facility] [place] [address] 12/22/2011 00:00:00 [id number] [employer]ce [address] [facility] [place] [address] 09/21/2012 00:00:00 [id number] [employer]ce [address] [facility] [place] [address] 10/22/2012 00:00:00 [id number] [employer] [address] [facility] [place] [address] 11/01/2013 00:00:00 [id number] ARIE Dasilva Main Office [address] [place], [place] [address] 12/26/2014 14:12:55 12/26/2014 15:09:05 Administration of diphtheria, pertussis, and tetanus vaccine [id number] Knee pain 82858820 Ice 4 times daily x 20 minutes at a time, elevate as much as possible, rest, use knee immobilize r and crutches x 14 days, continue naproxen BID as prescribed . Call/ return if no improvemen t or if you have worsening. [id number] Milena lemus MD Main Office [address] [place] [address] 02/23/2015 12:45:34 02/23/2015 13:46:43 Adult health examination 290990214 screening is utd. is trying to get more active Ankylosing spondylitis 7841680 on meds, helping, followed by Dr Arthur Smoker 03209257 pt to us e the nicotine patch Administra tion of pneumococcal vaccine 73431570 [id number] Milena lemus MD Main Office [address] [place] [address] 06/04/2015 15:37:27 06/04/2015 16:21:44 Dysfunctional uterine bleeding 96946472 N93.8 pt is due for a pap but will get with supervisor pumping since heavy menses and would liek to talk to supervisor pumping about possible treatment options. Tobacco de pendence syndrome 74721352 F17.290 patch prescribed , wants to quit Ankylosing spondylitis 2958238 M45.9 on meds, helping, followed by Dr Arthur, got vaccines she needed [id number] Julian Chavez MD Main Office [address] [place] [address] 10/19/2015 10:05:06 10/19/2015 10:49:34 Eczema of wrist 589034981 L30.9 [id number] Milena lemus MD Main Office [address] [place] [address] 11/23/2015 11:25:27 11/23/2015 11:59:11 Eczema of wrist 062586721 L30.9 improving on med Pain of stephan int of ankle 792278386 M25.579 pt to do Pt [id number] Milena lemus MD Main Office [address] [place] [address] 06/20/2016 14:21:35 06/20/2016 15:25:10 Adult health examination 539691431 Z00.00 screening is utd. is trying to get more active Screening for malignant neoplasm of cervix 865903296 Z12.4 pt needs supervisor pumping appt, we will arrange Body mass index 30+ - obesity 217863857 Z68.39 pt is working on weight loss and exercise Anxiety 86439725 F41.9 pt over the past 7 months she feels phobia of crowds, not leaving the house much, she feels antsy and irritated. not sleeping well, no alcohol or drugs. [id number] Heather Moe PA-C Main Office [address] [address] 07/15/2016 10:29:30 07/15/2016 11:31:10 Acute pharyngitis 475846643 J02.9 Parotitis 78652783 K11.2 0 [id number] Milena lemus MD Main Office [address] [address] 09/12/2016 15:07:21 09/12/2016 15:46:20 Anxiety state 798989500 F41.1 much better on sertraline , will keep same dose, excellent response Ankylosing spondylitis 9613666 M45.9 on meds, helping, followed by Dr Arthur, got vaccines she needed Eruption 879047581 R21 right wrist, ? eczema, pt to stop wearing bangle on that wrist, use aquaphor and steroid cream and see derm [id number] Milena lemus MD Main Office [address] [address] 07/30/2017 13:45:01 07/30/2017 14:24:16 Adult health examination 476404373 Z00.00 pap and mammo are due, tp to arrange. is trying to get more active Screening for malignant neoplasm of cervix 658121460 Z12.4 pt needs supervisor pumping appt, she will arrange Screening for malignant neoplasm of breast 084432334 Z12.39 pt to set up mammgram Ankylosing spondylitis 2254865 M45.9 on meds, helping, followed by Dr Arthur, got vaccines she needed Asthma 927034374 J45.90 9 stable on meds Eruption 903741224 R21 right wrist, ? eczema, pt to stop wearing bangle on that wrist, use aquaphor and steroid cream and see derm Hypercholesterolemia 136 58868 E78.00 Fatigue 96201021 R53.83 Body mass index 30+ - obesity 923904023 Z68.35 Z68.36 pt is working on weight loss and exercise Seborrheic dermatitis of scalp 007910782 L21.0 [id number] Milena lemus MD Main Office [address] [facility] [address] [place] [address] 12/21/2018 12:44:48 12/21/2018 13:55:16 Dysuria 93674018 R30.0 urine dip positive for UTI tx as below, void after intercours e and keep well hydrated Eczema 29011094 L30.9 tx Contracept ion care management 936162645 Z30.9 pt to tup appt wondering about control, is smoking so I told her no OCPs' pt to see supervisor pumping about other options [id number] Don Marlow MD Main Office [address] [facility] [address] [place] [address] 03/18/2019 09:40:23 03/18/2019 10:46:45 Recurrent urinary tract infection 104577192 N39.0 Likely recurrent UTI based on symptoms and Urine dip. Will send out culture. Advised to push clear fluids. Call if she has worseing pain Dysuria 07470394 R30.0 Right lowe r quadrant pain 645471876 R10.31 Not typical for stone pain but possible due to localizing sx and gross hematuria. Push fluids, rest, OOW today. Call if pain increases, ok to use otc pain med. No clinical evidence of appendicit is or pelvic infection at this time. [id number] Milena lemus MD Main Office [address] [facility] [address] [place] [address] 04/08/2019 12:39:28 04/08/2019 13:48:12 Adult health examination 923125653 Z00.00 pt is utd on pap and mammo is ordered by supervisor pumping, lost 75lbs total. Screening for malignant neoplasm of breast 212490303 Z12.39 pt to set up mammogram Exercise-i nduced asthma 24691234 J45.990 well controlled . Tobacco de pendence syndrome 47625869 F17.290 pt has been vaping nicotine, I strongly told her to stop vaping due to the health concerns and people getting fatal lung disease, she understand s and said she would, I recc nicotine patch and gum as she is still addicted to nicotine since vaping regularly, she does not want chantix. Ankylosing spondylitis 5688700 M45.9 pt needs a new rheumatolo gist, has neck pain, had been on Enbrel but not seeing Dr Arthur anymore, will x spasm, refer to rheum Anxiety state F41.1 anxiety has flared, increase sertraine to 100mg a day Mass of lower limb 49377 7000 R22.42 behind left knee, ? lipoma, will get Us to define if solid or cystic and then refer for removal [id number] Milena lemus MD Main Office [address] [facility] [address] [facility] [place] [address] 07/29/2019 13:48:02 07/29/2019 14:59:03 Ankylosing spondylitis 2723709 M45.9 pt is going to start Humira for , is pleased with Dr Peña's care. Anxiety state F41.1 anxiety has flared, increase sertraline to 150mg a day, if not better after 3 months ok to lower to 100mg a day Tobacco de pendence syndrome 00614021 F17.290 pt has been vaping nicotine, I strongly told her to stop vaping due to the health concerns and people getting fatal lung disease, she understand s and said she is cutting back. will stop vaping and try nicotine patch does not want chantix [id number] Milena lemus MD Tele[facility] [address] [facility] [address] [place] [address] 01/23/2020 13:07:24 01/30/2020 10:53:37 Anxiety state 160674141 F41.1 anxiety is up due to the pandemic, will increase sertraline to 200mg a day and reassess at [facility] 4months. Can add in another med(wellbu felicita)if not fully treated at this dose Ankylosing spondylitis 4718166 M45.9 waiting to get on Humara. followed by Dr Peña [id number] Aime Marvin MD [facility] [address] [facility] [address] [place] [address] 09/27/2020 13:28:10 10/01/2020 10:43:11 Anxiety state 607708469 F41.1 This has been increasing and she has been OOW for 2 days and advised to stay OOW tomorrow. We will do a limited supply of benzos to help her to get through this. Major depr essive disorder 894585409 F32.9 F32.1 Depression is getting worse as is her anxiety and she is unable to work. She is looking for a mental health provider. In the meantime she will start wellbutrin and continue sertraline . She will f/u with her PCP in 3-4 weeks. We will also do a med consult to [facility]. [id number] Milena lemus MD [facility] [address] [place] [address] 10/15/2020 08:33:59 10/18/2020 12:58:32 Anxiety state 712950620 F41.1 anxiety is very poorly controlled . is on sertraline 100mg and wellbutrin added 2 weeks ago to help with depression , no benefit yetl is looking for a therapist. needs to be out of work for a month while medication s get adjusted, sleep gets improved, she gets a therapist and I would like her to get a med prescriber , will fill out FMLA for a month leave, pt is going to apply for the state program 3 week f/u pt to be out of work form 10/15/20- due to anxiety, depression and insomnia. FMLA done, letter written Major depr ession single episode, in partial remission 37545017 F32.4 depression is very active, see above, no suicidal thoughts or plans but if they occur she knows to seek urgent eval in ER, pt to get a therapist and a med prescriber Insomnia 306227120 G47.0 9 very poor sleepn related to anxiety and depression [id number] Milena lemus MD Main Office [address] [place] [address] [place] [address] 10/31/2020 12:58:55 11/01/2020 15:15:58 Anxiety state 224300871 F41.1 on sertraline , wellbutrin , prn lorazepam and in ocunsleing , still very anxious, continue counseling Major depr ession single episode, in partial remission 52582260 F32.4 depression is very active, see above, I advised pt to get an appt with a med prescriber to help with med choices, for now stay on what she is on, continue therapy Insomnia 979758241 G47.0 9 very poor sleep related to anxiety and depression [id number] Milena lemus MD [place] [address] [place] [address] [place] [address] 11/19/2020 13:05:47 11/20/2020 08:40:21 Anxiety state 481904750 F41.1 on sertraline , wellbutrin , prn lorazepam and in counsleing and will see psychiatri st this week. still very anxious, continue counseling and meds. out of work note written, state and FMLA forms all filled out last week Insomnia 813743818 G47.0 9 very poor sleep related to anxiety and depression Major depr ession single episode, in partial remission 42240757 F32.4 active, continue meds, will see psychiatry and continue counseling [id number] Aime Marvin MD Main Office [address] [place] [place] [address] [place] [address] 11/27/2020 14:58:40 11/27/2020 15:39:28 Left flank pain 078189154 R10.9 Possibly from kidney stones. Will get an U/S to evaluate. May have passed since pain is no longer present. Acute pyelonephritis 366 40428 N10 Looks non-toxic and will treat with po abx. She understand s that she needs to go to the ER if she develops a high sustained fever or persistent vomiting. [id number] Milena lemus MD [facility] [address] [place] [address] [place] [address] 12/19/2020 08:44:11 12/20/2020 11:33:52 Anxiety state 663437873 F41.1 on sertraline , wellbutrin , prn lorazepam and in counsleing and will see psychiatri st this week. still very anxious, continue counseling and meds. out of work note written, state and FMLA forms all filled out last week Major depr ession single episode, in partial remission 18423586 F32.4 active, continue meds, will see psychiatry early december and continue counseling weekly, pt thinks the buproprion has helped as well. out of work through 01/19 when I will reeevaluat e Insomnia 612198414 G47.0 9 very poor sleep related to anxiety and depression not on prescripti on at this time, occasional ly uses CBD if needed [id number] [facility] [address] [facility] [address] [place] [address] 01/16/2021 08:35:13 01/18/2021 12:17:14 Anxiety state 739810006 F41.1 I reviewed psychaitry note, pt had wellbutrin increased just a few days ago, will try hydroxizin e for sleep and will increase lorazepam to 1mg for panic attacks. note to state out of work through 03/01/21. will reassess 03/01 at Major depr ession single episode, in partial remission 46722548 F32.4 wellbutrin recently increased, will reassess 03/01 Insomnia 224056380 G47.0 9 very poor sleep related to anxiety and depression not on prescripti on at this time, [place] of hydrozxy[place] [id number] Milena lemus MD Main Office [address] [facility] [address] [place] [address] 03/01/2021 09:58:32 03/01/2021 10:49:16 Adult health examination 783185981 Z00.00 pt is utd on pap and mammo is ordered by supervisor pumping, Anxiety state 820470307 F41.1 pt is on wellbutrin 300mg and sertraline 100mg and hydroxyzin e at night for sleep. Sleep is still disrupted and pt uses lorazepam only for high anxiety times. Pt is still out of work and should stay out of work for at least another 2 weeks while her medication s/sleep and depression are stabilized Exercise-i nduced asthma 29506183 J45.990 well controlled . Needs infl uenza immunization 458892720 Z23 Body mass index 30+ - obesity 795517450 E66.9 pt is working on weight loss and exercise just started weight watchers. Hypercholesterolemia 136 90472 E78.00 check fasting Fatigue 11942531 R53.83 check labs History of abnormal cervical Papanicolaou smear 473136771 Z87.42 utd on supervisor pumping followup with supervisor pumping [id number] Milena lemus MD [facility] [address] [place] [address] 07/15/2021 12:24:48 07/16/2021 09:17:30 Blood in urine 99185828 R31.9 urine test not accurate but was not given a clean catch cup. will repeat a clean catch. Ankylosing spondylitis 8786862 M45.[address] Peña. she will arrange a follow-up has not seen him for some time, having back and hip pain Major depr ession single episode, in partial remission 87212910 F32.4 on wellbutrin and sertraline . is stressed with looking for work. will increase sertraine Anxiety 91149949 F41.9 using lorazepam as needed, trying to use it rarely. is on sertraline 100mg a day, will increase to 150mg and try to better control. [id number] Milena lemus MD Main Office [address] [place] [address] 07/31/2021 07:52:57 07/31/2021 17:03:03 Anxiety state 907067617 F41.1 pt is on meds, they are helping her anxiety and mood doing a form unemployme nt pt feels she is able to work on a full-time basis without restrictio ns. [id number] KISHORE WOO MD Main Office [address] [place] [address] 03/16/2023 14:11:51 03/16/2023 14:55:21 Adult health examination 095219150 Z00.00 Health Maintenanc e FemaleA) Patient was counseled on healthy diet, exercise and nutrition due to BMI of 34.5 B) ScreeningL ast Mammogram: start at age 50 stop at 74Date: Result: BIRADS ???Next: had it in september, will try to get results Last Pap smear: start at age 21 to age 65Date: Results : ???Next: had it in september, will try to get results Last Colonoscop y: start at age 45-75Date: Result: Next: ordered Last DEXA scan:Date: due at 65Result: ??? C) Vaccines:I nfluenza: declinedTd AP: 12/26/2014Z anushka: due at 89UPA50: due at 89XXHF39: 02/23/2015P CV20:PCV15 :COVID: 09/05/2020, 05/23/2021 D) Routine blood work orderedE) Updated patient's history RTC in one year for annual exam or sooner if any acute complaints Exercise-i nduced asthma 15538250 J45.990 - currently on pro-air and use as needed Ankylosing spondylitis 8763209 M45.9 - chronic problem, pt does mention that it has been worsening in the last few years- pt was previously seeing rheumatolo gy however as not since COVID- ordered ERS and CRP- c/w cyclobenza angela 10mg as needed- pt interested and following back with Dr. Peña, pt will register with [facility] and will refer afterwards Anxiety state [id number] F41.1 - WILMER-7 score of 19- not under good control- will switch bupropion XL 150mg to buspirone 7.5mg BID> please note that in the past bupropion was increased to 300mg which caused reduced sexual drive for patient and pt felt like a zombie- c/w sertraline 100mg QD- counsellin g provided- c/w lorazepam 1mg QD-> big crowds and driving on highway Irritable bowel syndrome 35039124 K58.9 - under good control Screening for malignant neoplasm of colon 705544827 Z12.11 Fatigue 75136215 R53.83 Z00.00 Hyperlipidemia 50543547 E78.5 Z00.00 Hepatitis C screening 41 6603894 Z11.59 Body mass index 30+ - obesity 632805753 Z68.34 - BMI of 34.5 Ex-smoker 4516258 Z87.89 1 - stopped at 45- pt hx of 13 pack years Severe danny or depression, single episode [id number] 05 F32.2 - PHQ-9 score of 16- not under good control- as per patient anxiety worse than depressive symptoms- will switch bupropion XL 150mg to buspirone 7.5mg BID> please note that in the past bupropion was increased to 300mg which caused reduced sexual drive for patient and pt felt like a zombie- c/w sertraline 100mg QD- denies SI/HI- counsellin g provided Obesity 056983857 E66.9 - BMI of 34.5- Cut down on (limit) fast foods, sweets, and processed snack foods.- Limit alcohol intake to no more than 1- 2 drinks a day for men. One drink equals 12 oz of beer, 5 oz of wine, or 1 oz of hard liquor.- Keep a weight loss journal and keep track of the food and portions that you eat.- The exercise that you do- 4 times a week or 150 minutes cumulative of moderate exercise recommende dShannon [id number] Aime Marvin MD Main Office [address] [address] 06/08/2024 13:15:50 06/08/2024 13:49:12 Acute pharyngitis [id number] J02.9 in office strep test is negative Viral uppe r respiratory tract infection 261374038 J06.9 x1.5 weeks of congestion , SO, sore throat-sis ter was recently sick over the holidays with covid>home covid test is negative-d enies of any measureabl e fever, chills, sob, chest pain-has been taking OTC tylenol, sudafed, and ibuprofen which provides relief-PE was unremarkab le, lungs were CTA b/l-discus sed to continue with conservati ve measuremen ts Nausea 431578271 R11.0 x4 days-only in the morning-de nies of any vomiting-r eports boyfriend was recently sick with the stomach bug-likely viral in nature, pt requests hcg test [id number] KISHORE WOO MD Main Office [address] [facility] [place] [address] 08/01/2024 13:03:44 08/01/2024 13:34:46 Adult health examination [id number] Z00.00 Health Maintenanc e FemaleA) Patient was counseled on healthy diet, exercise and nutrition due to BMI of 34.5 B) ScreeningL ast Mammogram: start at age 50 stop at 74Date: 4Re sult: BIRADS-1Ne xt: 09/2024 Last Pap smear: start at age 21 to age 65Date: 2Re sults: HPV negativeNe xt: 5 years (had one last year 2023) Last Colonoscop y: start at age 45-75Date: Result: Next: ordered, not performed Last DEXA scan:Date: due at 65Result: ??? C) Vaccines:I nfluenza: declinedTd AP: 12/26/2014 -> orderedZos ter: due at 47UOB62: due at 24WLIP44: 02/23/2015P CV20:PCV15 :COVID: 09/05/2020, 05/23/2021 D) Routine blood work orderedE) Updated patient's history RTC in one year for annual exam or sooner if any acute complaints Anxiety state [id number] F41.1 - WILMER-7 score of 3- stable- c/w buspirone 7.5mg BID> please note that in the past bupropion was increased to 300mg which caused reduced sexual drive for patient and pt felt like a zombie- pt stopped sertraline 150mg QD -> mood under good control- counsellin g provided- c/w lorazepam 1mg QD-> big crowds and driving on highway Irritable bowel syndrome 92930121 K58.9 - type: diarrhea- intermitte nt- recommende d probiotics Severe danny or depression, single episode [id number] 05 F32.2 - PHQ-9 score of 1- stable- pt has stopped sertraline 150mg QD- denies SI/HI- counsellin g provided- RTC in 6 months Ex-smoker 1754721 Z87.89 1 - stopped at 45- pt hx of 13 pack years Ankylosing spondylitis 1102748 M45.9 - chronic problem, pt does mention that it has been worsening in the last few years- pt was previously seeing rheumatolo gy however as not since COVID- c/w cyclobenza angela 10mg as needed Screening for malignant neoplasm of breast 672396481 Z12.39 Screening for malignant neoplasm of colon 241124668 Z12.11 Requires a tetanus booster 400090219 Z28.39 Fatigue 75364208 R53.83 Z00.00 Hyperlipidemia 19731210 E78.5 Z00.00 FASTING Eczema 58512076 L30.9 Exercise-i nduced asthma 13069537 J45.990 - currently on pro-air and use as needed, refilled Body mass index 30+ - obesity 065140610 E66.9 Z68.34 - BMI of 34.5- Cut down on (limit) fast foods, sweets, and processed snack foods. - Limit alcohol intake to no more than 1- 2 drinks a day for men. One drink equals 12 oz of beer, 5 oz of wine, or 1 oz of hard liquor. - Keep a weight loss journal and keep track of the food and portions that you eat. - The exercise that you do- 4 times a week or 150 minutes cumulative of moderate exercise recommende d. Health Concerns Section Related Observation LastModified by Organization Detai ls LastModified Time None Recorded Concern Status LastModified by Organization Details LastModified Time None Recorded Advance Directives Directive N: Payers Encounter Date Sequence Insurance Name Policy Number Policy Cardenas Covered Member ID Cardenas Member ID Guarantor Name 07/15/2021 1 [place] [facility] [place] [id number] Tevin Orellana [id number] Lindsey Saldivar 07/31/2021 1 [place] [facility] ([facility] [place] [id number] Tevin Orellana [id number] Lindsey Saldivar 03/16/2023 1 [place] [facility] ([facility] [place] [id number] Tevin Orellana [id number] 02 Lindsey Saldivar 06/08/2024 1 [place] [facility] ([facility] [place] [id number] Tevin Orellana [id number] 02 Lindsey Saldivar 08/01/2024 1 [place] [facility] ([facility] [place] [id number] Tevin Orellana [id number] 02 Lindsey Vasques McBride Notes Date Note Type Note Provider Name and Address Organization Details Recorded Time 2 text/html Telehealth visit to follow-up on anxiety/depression. PT has been feeling moderate anxiety and depression. PT is looking for work, finding it stressful. She is on sertraline and wellbutrin, tyring not to use lorazepam, wondering about going up on sertraline dose Milena Carri hyatt, [facility] 07/15/2021 19:32:26 2 text/html This is a telehealth visit. Pt resigned at the [employer] in early March due to her medical issues. Pt was not aware of being able to apply for unemployment benefits related to health reasons. She is applying and the form is in relation to these requested benefits. Pt is interviewing for work and has a part-time job currently that she hopes will turn into a full-time down the road. For now has limited hours. Still with anxiety and depression and back/hip pain, is on meds. Pt feels she is able to do a full-time job without restrictions. Milena Carri hyatt [facility] 07/31/2021 16:34:51 3 text/html Lindsey Saldivar is a 47 year old F who presented to the clinic for her annual exam. Pt has had no emergency room visits or hospitalizations during this time. Pt is on wellbutrin, sertraline and on hydroxyzine for sleep. Mood is better but still up and down. Pt is still with anxiety, sleep disruption, is in counseling and is doing a bit better but still with a good amount of anxiety. Pt mentions that she is feels scatter brained and having trouble focusing on tasks. Pt was seeing a therapist however needed to stop as her insurance changed. Complaints: anxiety Is not using ASA.OTC/Herbal supplements use: none currently Gynecologic HistoryPatient's last menstrual period is currentlyMenstrual cycle lasts 4-5 days, with spotting, without clothsMenstrual cycle: irregular, on perimenopauseSexually active: yesContraception: mini-pill+ abnormal paps, twice last was in 2019 underwent LEEPDenies cysts, stds, fibroids Obstetric HistoryGravida: 1Para: 1AB: 0Livin (vaginal)Complications: some hypertension Drug use: cannabis due to pain from ankylosing spondylitisEtoh use: does not, rarelytobacco use: nicotine vape replacement, one cartilage 2-3 weeks, former smoker (started at 19 and stopped 45, 1 pack for 2-3 days)spf/derm: Dental: has beenEye: every yearDiet: regularActivity: none (used to) Diamond hyatt, [facility] [place] 03/18/2023 09:39:04 5 text/html Lindsey is a 48yr old F who presents for symptoms of sore throat, SO, and congestion x1.5 weeks. Home covid test is negative. Denies of any fever/chills, sob, chest pain. Denies of any dysphagia, odynophagia. Reports her sister was recently sick with covid. Endorses nausea x4 days, only in the mornings. Has been taking OTC tylenol, ibuprofen, and sudafed which provide relief. VONNIE WALKER [address] [address], [place], [address], [facility] [place] 06/08/2024 13:53:26 5 text/html Lindsey Saldivar is a 48 year old F who presented to the clinic for her annual exam. Pt has had no emergency room visits or hospitalizations during this time. Complaints: none Is not using ASA.OTC/Herbal supplements use: MMV intermittently Gynecologic HistoryPatient's last menstrual period (unsure)Menstrual cycle lasts 4-5 days, with spotting, without clothsMenstrual cycle: irregular, on perimenopauseSexually active: yesContraception: mini-pill+ abnormal paps, twice last was in 2019 underwent LEEPDenies cysts, stds, fibroids Obstetric HistoryGravida: 1Para: 1AB: 0Livin (vaginal)Complications: some hypertension Drug use: cannabis edibles or vaporized oil due to pain from ankylosing spondylitisEtoh use: does not, rarelytobacco use: nicotine vape replacement, one cartilage 2 weeks, former smoker (started at 19 and stopped 45, 1 pack for 2-3 days)spf/derm: Dental: every 6 monthsEye: every yearDiet: regularActivity: uses stationary bike, no real regimen KISHORE WOO MD [address] [address], [place], [address], [facility] 08/01/2024 13:33:18 OBGyn Episode No OBEpisode recorded.
== END 2024-10-10 08:17 | disposition home or self-care (01) ==
LOC: HO.MAMMO 08:16
PROVIDERS: PCP Student in an Organized Health Care Education/Training Program; Visit Provider Student in an Organized Health Care Education/Training Program
DX: Z12.31 Encounter for screening mammogram for malignant neoplasm of breast (principal)
CPT/HCPCS: 77063; 77067

== ENCOUNTER 2025-03-30 07:38 | Outpatient (REF) | payer BC, SELFPAY ==
--- OUTSIDE RECORDS SUMMARY | 2025-03-30 09:06 | XMS_ITS | Data Portability ---
Author Organization [facility], [address] Address [address] [place] [address] Assessment No assessment recorded. Plan of Treatment Reminders Order Date Submit Date Provider Last Modified By Organization Details Last Modified Time Details Appointments None recorded. Lab urinalysis, dipstick 2023 024 [email or web address] 21009[facility], [address] [place] [address] [place], [address], 4 16:50:53 culture, urine 2023 024 [place], [address] [place] [address], [place], [address], 4 08:09:46 Referral None recorded. Procedures None recorded. Surgeries None recorded. Imaging None recorded. Medication Orders ondansetron 4 mg disintegrat ing tablet 2023 024 [place] [id number], [address] [place], [place], [id number], 4 16:47:43 nitrofurant oin monohydrate /macrocryst als 100 mg capsule 2023 024 [id number], [address], [place], [id number], 4 16:47:44 Patient TargetsNo targets recorded. Patient Instructions Encounter Date Encounter Id Patient Instructions Last Modified By Organization Details Last Modified Time 11/10/2023 [id number] nausea and vomiting: care instructions [email or web address] Not available 11/10/2023 16:47:37 Reason for Referral None Reported. Results Created Date Observation Date Name Description Value Unit Range Abnormal Flag Note LastModifiedBy Organization Detail LastModifiedTime 11/10/19 24 11/12/2023 URINE CULTU RE, ROUTI NE urine culture, routine FINAL REPORT Not Available [facility] ([facility]) [address], [place], [address], 11/12/2023 08:09:46 11/10/19 24 11/12/2023 URINE CULTU RE, ROUTI NE result 1 NO GROWTH Not Available [facility] ([facility]) [address], [place], [address], 11/12/2023 08:09:46 11/10/19 24 11/10/2023 urina lysis , dipst ick Unknown Analyte Light Yellow Not Available evelyne [address], [address], 11/10/2023 16:42:59 11/10/19 24 11/10/2023 urina lysis , dipst ick Unknown Analyte Clear Not Available bry[address], [address], 11/10/2023 16:42:59 11/10/19 24 11/10/2023 urina lysis , dipst ick Unknown Analyte Negati ve Not Available evelyne [address], [address], 11/10/2023 16:42:59 11/10/19 24 11/10/2023 urina lysis , dipst ick Unknown Analyte Negati ve Not Available evelyne [address], [address], 11/10/2023 16:42:59 11/10/19 24 11/10/2023 urina lysis , dipst ick Unknown Analyte Negati ve Not Available [facility]elyne [email or web address] [place], [address], 11/10/2023 16:42:59 11/10/19 24 11/10/2023 urina lysis , dipst ick Unknown Analyte 1.010 Not Available davon [address] [place], [address], 11/10/2023 16:42:59 11/10/19 24 11/10/2023 urina lysis , dipst ick Unknown Analyte Trace- intact Not Available evelyne curry [address] [place], [address], 11/10/2023 16:42:59 11/10/19 24 11/10/2023 urina lysis , dipst ick Unknown Analyte 7.0 Not Available davon [address] [place], [address], 11/10/2023 16:42:59 11/10/19 24 11/10/2023 urina lysis , dipst ick Unknown Analyte Negati ve Not Available evelyne curry [address] [place], [address], 11/10/2023 16:42:59 11/10/19 24 11/10/2023 urina lysis , dipst ick Unknown Analyte 0.2 E.U./d L Not Available [facility] [address] [place], [address], 11/10/2023 16:42:59 11/10/19 24 11/10/2023 urina lysis , dipst ick Unknown Analyte Negati ve Not Available [facility] [address] [place], [address], 11/10/2023 16:42:59 11/10/19 24 11/10/2023 urina lysis , dipst ick Unknown Analyte Trace Not Available [address] [place] [address], [place], [address], 11/10/2023 16:42:59 Result Notes None recorded. Problems Name Problem SNOMED Code Status Onset Date Resolution Date Notes Provider Name and Address Organization Details Recorded Time Depressive disorder 65609293 Active 024 Shalini [place]keny null, [place] - [facility] 4 16:33:55 Anxiety 96721523 Active 024 Shalini [place]y null, [place] - [facility] 4 16:34:09 Acute urinary tract infection 399200394 Active 024 Shalini [place]keny null, [place] - [facility] 4 16:44:32 Problem Notes None recorded. Medical Equipment None Reported. Allergies Allergen ID Allergen Name Allergen Category Reaction Reaction Severity Criticality Documentation Date Start Date Code Code System Note Provider Name and Address Organization Details Recorded Time 684692 acetamino phen / hydrocodo ne medicatio n Not available Not available Not available 11/10/2023 43909 2 RxNorm Shalini [place]y null, [place] - [facility] 4 16:31:27 844461 morphine medicatio n Not available Not available Not available 11/10/2023 7052 RxNorm Shalini [place] null, [place] - [facility] 4 16:31:36 [id number] nitrofura ntoin medicatio n [place] moderate high 11/13/2023 7454 RxNorm VONNIE Vazquez [facility] [place], [place], [address] , [place] - [facility] 4 14:46:40 Medications Name Sig Start Date Stop Date Status Note LastModified by Organization Details LastModified Time sertraline 100 mg tablet Take 1 tablet every day by oral route. active Not Available Not Available No t Available buspirone 7.5 mg tablet Take 1 tablet twice a day by oral route. active Not Available Not Available No t Available lorazepam 1 mg tablet Take 1 tablet 3 times a day by oral route. active Not Available Not Available No t Available norethindro ne (contracept lissette) 0.35 mg tablet Take 1 tablet every day by oral route. active Not Available Not Available No t Available ondansetron 4 mg disintegrat ing tablet Place 1 tablet 3 times a day by transling ual route for 5 days. 2023 active Not Available Not Available Not Avai lable nitrofurant oin monohydrate /macrocryst als 100 mg capsule Take 1 capsule every 12 hours by oral route for 5 days. 2023 active Not Available Not Available Not Avai lable Norditropin FlexPro 11/09 completed Not Available Not Available Not Available Vitals Date Recorded Body height Body mass index (BMI) Body weight Oxygen saturation Oxygen saturation in Arterial blood by Pulse oximetry Body temperature Heart rate Respiratory rate Systolic And Diastolic Provider Name and Address Organization Details Last Updated DateTime 172.72 cm 34.2 kg/m2 005509. 28 g 97 % 97 % 97.7 [degF] 90 /min 16 /min 145/83 mm[Hg] Shalini Lino PA - [facility] 16:35:40 Social History Question Answer Notes LastModified by Organizat ion Details LastModified Time Tobacco Smoking Status Former Smoker Shalini hyatt, [place] - [facility] 11/10/2023 16:34:39 Have You Had A Flu Shot This Season? Yes Information not available 11/10/2023 Have You Recently Traveled Abroad? No Information not available 11/10/2023 Sex: Unknown Functional Status Question Answer Note LastModified by Organization D etails LastModified Time What is your level of alcohol consumption? None Information not available 11/10/2023 Mental Status None recorded. Family History Relationship Description Onset Age of this Age Resolved Age Notes LastModified by Organization Details LastModified Time Father No current problems or disability Not available 11/09 16:34:18 Mother No current problems or disability Not available 11/09 16:34:18 Medical History No medical history recorded. Gynecological History Statement/Question Response Date of LMP 10/19/2023 Obstetrics History GPAL:G 0 P 0 0 0 0 Past Encounters Encounter ID Performer Location Encounter Start Date Encounter Closed Date Diagnosis/Indication Diagnosis SNOMED-CT Code Diagnosis ICD10 Code Diagnosis IMO Codes Diagnosis Note [id number] [facility] ORDAZ [facility] [address] [place] [address] 11/10/2023 16:25:50 11/10/2023 16:49:12 Acute urinary tract infection 058339985 N39.0 We are treating you for a urinary tract infection based on your symptoms and in clinic testing.Yo u are being prescribed antibiotic s to treat your infection. Your urine is being sent out for culture to ensure the proper antibiotic s were prescribed . You will receive a call within 2-3 days with the results The following are recommenda tions to help with your symptoms and recovery:1 . Drink Plenty of fluids - Stay hydrated2. Finish full antibiotic course3. I recommend starting a Probiotic - I recommend Florastor4 . If you take Azo - this will help the burning and urgency feeling - just be aware it will turn your urine bright yellow. I would not hesitate to be seen again if you develop:1. Severe Back Pain2. Abdominal Pain3. Nausea and Vomiting4. Fever > 101.0 You symptoms should improve within 72 hours for a typically UTI. Thank you for using [facility] , if you have any questions or concerns please reach out us. Nausea and vomiting 1354 1999 R11.2 You were seen today with nausea.I have sent in some medication to take when you are nauseated to help the symptoms so you can stay well hydrated Please drink plenty of fluids (at least 10 -12 cups of water a day); Hydration is vital with any illness I recommend a BRAT diet while recovering from your illness. Bananas, Rice, Applesauce , [place]. These are foods that are gently on your stomach but have the carbohydra rasta and protein your body needs. You may eat other foods like soup that are easy on your stomach as well. After able to tolerate these foods for 24 hours, you may then begin trying to increase and expand your diet as tolerable. If unable to tolerate food or fluids for over 24 hours please follow up with a PCP, us, or go to the ED If unable to control vomiting for 24 hours please seek medical attention immediatel y Call 911 or proceed to nearest Emergency Department if you develop shortness of breath, chest pain, or other symptoms that concern you. Go to the Emergency Department immediatel y if your symptoms worsen or if you develop new symptoms that concern you. Health Concerns Section Related Observation LastModified by Organization Detai ls LastModified Time None Recorded Concern Status LastModified by Organization Details LastModified Time None Recorded Advance Directives Directive None Recorded Payers Insurance Date Sequence Insurance Name Policy Number Policy Cardenas Covered Member ID Cardenas Member ID Guarantor Name 11/10/2023 1 [facility] (O) Lindsey Yariel [id number] Lindsey Saldivar Notes Date Note Type Note Provider Name and Address Organization Details Recorded Time 11/10/2023 text/html 48 y/o female here with headache, fevers, body aches, nausea, diarrhea, vomiting starting 4 days ago, starting to improve, but now is worried about UTI. did a home test that was positive for leuks VONNIE Vazquez [address] [place], [address], [place] - [facility] 11/10/2023 16:49:30 OBGyn Episode No OBEpisode recorded.
--- OUTSIDE RECORDS SUMMARY | 2025-03-30 09:06 | XMS_ITS | Data Portability ---
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 Patient understood and agreed with the plan. Not available 01/02/2025 23:16:56 02/16/2025 02/16/2025 This service was provided using telemedicine ([facility] The patient consented and was seen through synchronous audio and video technology. If audio only connection was used, the provider used telephone communication. Patient was located at home in the [facility]. Provider was located in the office. No other persons participated in the telemedicine visit except for the patient unless otherwise indicated here. Total time of visit was 9 minutes. Discussed with patient the signs/symptoms warranted for a return to office visit and/or an ER visit. Patient understood and agreed with the plan. Not available 02/16/2025 13:02:35 Plan of Treatment Reminders Order Date Submit Date Provider Last Modified By Organization Details Last Modified Time Details Appointments FOLLOW UP 2024 02:00P Jr MATTHEWS MD Not available Not available Not available Lab CBC w/ auto diff 2024 025 NEW [facility] (Centralized Electronic Ordering - All Locations), Patient Can Go To The Location Of Their Choice, 03/20/2025 12:05:44 inflam mation panel, serum or plasma 2024 025 NEW [facility] (Centralized Electronic Ordering - All Locations), Patient Can Go To The Location Of Their Choice, 03/20/2025 12:05:46 immuno globul ins iga+ig g+igm, quanti tative , serum 2024 025 NEW [facility] (Centralized Electronic Ordering - All Locations), Patient Can Go To The Location Of Their Choice, 03/20/2025 12:05:45 HIV 1 + 2, meanin gful use set 2024 NEW [facility] (Centralized Electronic Ordering - All Locations), Patient Can Go To The Location Of Their Choice, 03/20/2025 12:05:46 RPR (rapid plasma reagin ), serum 2024 025 NEW [facility] (Centralized Electronic Ordering - All Locations), Patient Can Go To The Location Of Their Choice, 03/20/2025 12:05:46 C3 + C4 (compl ement) , serum 2024 NEW [facility] (Centralized Electronic Ordering - All Locations), Patient Can Go To The Location Of Their Choice, 03/20/2025 12:05:45 BMP, serum or plasma 2024 025 NEW [facility] (Centralized Electronic Ordering - All Locations), Patient Can Go To The Location Of Their Choice, 03/05/2025 08:07:09 magnes ium, serum or plasma 2024 025 NEW [facility] (Centralized Electronic Ordering - All Locations), Patient Can Go To The Location Of Their Choice, 03/05/2025 08:07:10 TSH, ultra- sensit lissette, serum 2024 025 NEW [facility] (Centralized Electronic Ordering - All Locations), Patient Can Go To The Location Of Their Choice, 03/05/2025 08:07:10 hepati c functi on panel w/otot al protei n, serum 2024 025 NEW [facility] (Centralized Electronic Ordering - All Locations), Patient Can Go To The Location Of Their Choice, [id number] 03/05/2025 08:07:09 lipid panel, serum 2024 025 [email or web address], [address], [place], [address], 11/03/2024 11:38:23 BMP, serum or plasma 2024 025 NEW [facility], [address], [place], [address], 03/05/2025 08:07:13 CBC w/ auto diff 2024 025 NEW [facility], [address], [place], [address], 03/05/2025 08:07:13 TSH, ultra- sensit lissette, serum 2024 025 [email or web address], [address], [place], [address], 11/03/2024 11:38:23 Referral mental health counse muna referr al 2024 025 Not available 03/20/2025 11:49:28 Procedures colono scopy screen ing (PROC) 2024 025 [email or web address] Not available 08/01/2024 13:50:10 Surgeries None record ed. Imaging electr oencep halogr am - pt having involu ntaril y jerkin g moveme nts 2024 025 [email or web address] Not available 03/20/2025 11:49:14 MRI, brain, w/o contra st - pt having upper and lower extrem ity muscle spasms and involu ntary moveme nt of her neck 2024 025 [facility] ([facility] [address], [place], [address], 03/06/2025 14:28:32 MAMMO, screen ing, bilate ral 2024 025 NEW Not available 10/16/2024 15:01:31 Medication Orders buspir one 15 mg tablet 2024 025 [facility] #[id number], [address] [place], [place], [id number], 03/17/2025 15:02:38 buspir one 10 mg tablet 2024 025 [facility] #62638, [address] [place], [place], [id number], 03/17/2025 14:58:41 loraze annmarie 1 mg tablet 2024 025 [facility] #66747, [address] [place], [id number], 02/18/2025 19:50:58 sumatr iptan 25 mg tablet 2024 025 [facility] #11036, [address] [place], [place], [id number], 02/16/2025 13:01:34 sumatr iptan 25 mg tablet 2024 025 [facility] #62638, [address] [place], [place], [id number], 01/02/2025 15:37:16 ProAir HFA 90 mcg/ac tuatio n aeroso l inhale r 2024 025 [facility] #16355, [address] [place], [place], [id number], 08/01/2024 13:29:04 betame thason e diprop ionate 0.05 % topica l ointme nt 2024 025 [facility] #53996, [address] [place], [place], [id number], 08/01/2024 13:29:08 Patient TargetsNo targets recorded. Patient Instructions Encounter Date Encounter Id Patient Instructions Last Modified By Organization Details Last Modified Time 08/01/2024 [id number] irritable bowel syndrome: care instructions Not available 08/01/2024 13:28:42 ankylosing spondylitis: care instructions Not available 08/01/2024 13:28:42 ankylosing spondylitis: exercises Not available 08/01/2024 13:28:41 Starting a Weight-Loss Plan: Care Instructions Not available 08/01/2024 13:32:51 03/17/2025 [id number] Mental Health Information Not available 03/17/2025 15:02:38 learning about stress Not available 03/17/2025 15:02:38 Reason for Referral Mental Health Counselor Refe rral for Anxiety state Referring Physician: Sylvia Matthews, Family Medicine, Encounter Date: 03/17/2025 Results Created Date Observation Date Name Description Value Unit Range Abnormal Flag Note LastModifiedBy Organization Detail LastModifiedTime 03/04/2003/05/2025 BMP7 glucose 86 mg/dL 70-99 normal Not Availabl e [facility] ([facility]) [address] [place], [address], 03/05/2025 08:07:09 03/04/2003/05/2025 BMP7 BUN 13 mg/dL 6-24 normal Not Available [facility] ([facility]) [address] [place], [address], 03/05/2025 08:07:09 03/04/2003/05/2025 BMP7 creatinine 0.86 mg/dL 0.57-1 .00 normal Not Available [facility] ([facility]) [address] [place], [address], 03/05/2025 08:07:09 03/04/2003/05/2025 BMP7 eGFR 83 mL/mi n/1.7 3 >59 normal Not Available [facility] ([facility]) [address] [facility] [place], [address], 03/05/2025 08:07:09 03/04/2003/05/2025 BMP7 sodium 138 mmol/ L 134-14 4 normal Not Available [facility] ([facility]) [address] [facility] [place], [address], 03/05/2025 08:07:09 03/04/2003/05/2025 BMP7 potassium 4.7 mmol/ L 3.5-5. 2 normal Not Available [facility] ([facility]) [address] [facility] [place], [address], 03/05/2025 08:07:09 03/04/2003/05/2025 BMP7 chloride 100 mmol/ L 96-106 normal Not Available [facility] ([facility]) [address] [facility] [place], [address], 03/05/2025 08:07:09 03/04/2003/05/2025 BMP7 carbon dioxide, total 25 mmol/ L 20-29 normal Not Available [facility] ([facility]) [address] [facility] [place], [address], 03/05/2025 08:07:09 03/04/2003/05/2025 HEPAT IC FUNCT ION PANEL (6) albumin 4.4 g/dL 3.9-4. 9 normal Not Available [facility] ([facility]) [address] [facility] [place], [address], 03/05/2025 08:07:09 03/04/2003/05/2025 HEPAT IC FUNCT ION PANEL (6) bilirubin, total 0.7 mg/dL 0.0-1. 2 normal Not Available [facility] ([facility]) [address] [facility], [place], [address], 03/05/2025 08:07:09 03/04/2003/05/2025 HEPAT IC FUNCT ION PANEL (6) bilirubin, direct 0.17 mg/dL 0.00-0 .40 normal Not Available [facility] ([facility]) [address] [facility] [place], [address], 03/05/2025 08:07:09 03/04/2003/05/2025 HEPAT IC FUNCT ION PANEL (6) alkaline phosphatase 69 IU/L 41-116 normal Not Available [facility] ([facility]) [address] [facility] [place], [address], 03/05/2025 08:07:09 03/04/2003/05/2025 HEPAT IC FUNCT ION PANEL (6) AST (SGOT) 11 IU/L 0-40 normal Not Available [facility] ([facility]) [address] [facility] [place], [address], 03/05/2025 08:07:09 03/04/2003/05/2025 HEPAT IC FUNCT ION PANEL (6) ALT (SGPT) 11 IU/L 0-32 normal Not Available [facility] ([facility]) [address] [facility] [place], [address], 03/05/2025 08:07:09 03/04/2003/05/2025 TSH RFX ON ABNOR MAL TO FREE T4 TSH 1.200 uIU/m L 0.450- 4.500 normal Not Available [facility] ([facility]) [address] [facility] [place], [address], 03/05/2025 08:07:10 03/04/2003/05/2025 MAGNE SIUM magnesium 2.0 mg/dL 1.6-2. 3 normal Not Available [facility] ([facility]) [address] [place], [address], 03/05/2025 08:07:10 03/04/2003/05/2025 CBC WITH DIFFE RENTI AL/PL ATELE T WBC 6.1 x10e3 /uL 3.4-10 .8 normal Not Available [facility] ([facility]) [address] [facility], [place], [address], 03/05/2025 08:07:13 03/04/2003/05/2025 CBC WITH DIFFE RENTI AL/PL ATELE T RBC 3.97 x10e6 /uL 3.77-5 .28 normal Not Available [facility] ([facility]) [address] [place], [address], 03/05/2025 08:07:13 03/04/2003/05/2025 CBC WITH DIFFE RENTI AL/PL ATELE T hemoglobin 12.0 g/dL 11.1-1 5.9 normal Not Available [facility] ([facility]) [address] [facility], [place], [address], 03/05/2025 08:07:13 03/04/2003/05/2025 CBC WITH DIFFE RENTI AL/PL ATELE T hematocrit 36.7 % 34.0-4 6.6 normal Not Available [facility] ([facility]) [address] [place], [address], 03/05/2025 08:07:13 03/04/2003/05/2025 CBC WITH DIFFE RENTI AL/PL ATELE T MCV 92 fL 79-97 normal Not Available [facility] ([facility]) [address] [place], [address], 03/05/2025 08:07:13 03/04/2003/05/2025 CBC WITH DIFFE RENTI AL/PL ATELE T MCH 30.2 pg 26.6-3 3.0 normal Not Available [facility] ([facility]) [address] [place], [address], 03/05/2025 08:07:13 03/04/2003/05/2025 CBC WITH DIFFE RENTI AL/PL ATELE T MCHC 32.7 g/dL 31.5-3 5.7 normal Not Available [facility] ([facility]) [address] [facility], [place], [address], 03/05/2025 08:07:13 03/04/2003/05/2025 CBC WITH DIFFE RENTI AL/PL ATELE T RDW 13.0 % 11.7-1 5.4 Not Available [facility] ([facility]) [address] [facility], [place], [address], 03/05/2025 08:07:13 03/04/2003/05/2025 CBC WITH DIFFE RENTI AL/PL ATELE T platelets 296 x10e3 /uL 150-45 0 normal Not Available [facility] ([facility]) [address] [facility], [place], [address], 03/05/2025 08:07:13 03/04/2003/05/2025 CBC WITH DIFFE RENTI AL/PL ATELE T neutrophils 56 % not estab. normal Not Available [facility] ([facility]) [address] [facility], [place], [address], 03/05/2025 08:07:13 03/04/2003/05/2025 CBC WITH DIFFE RENTI AL/PL ATELE T lymphs 26 % not estab. normal Not Available [facility] ([facility]) [address] [facility], [place], [address], 03/05/2025 08:07:13 03/04/2003/05/2025 CBC WITH DIFFE RENTI AL/PL ATELE T monocytes 7 % not estab. normal Not Available [facility] ([facility]) [address] [facility], [place], [address], 03/05/2025 08:07:13 03/04/2003/05/2025 CBC WITH DIFFE RENTI AL/PL ATELE T eos 10 % not estab. normal Not Available [facility] ([facility]) [address] [facility], [place], [address], 03/05/2025 08:07:13 03/04/2003/05/2025 CBC WITH DIFFE RENTI AL/PL ATELE T basos 1 % not estab. normal Not Available [facility] ([facility]) [address] [facility], [place], [address], 03/05/2025 08:07:13 03/04/2003/05/2025 CBC WITH DIFFE RENTI AL/PL ATELE T immature cells VIDEOGAME DESIGNER Not Available [facility] ([facility]) [address] [facility], [place], [address], 03/05/2025 08:07:13 03/04/2003/05/2025 CBC WITH DIFFE RENTI AL/PL ATELE T neutrophils (absolute) 3.5 x10e3 /uL 1.4-7. 0 normal Not Available [facility] ([facility]) [address] [place], [address], 03/05/2025 08:07:13 03/04/2003/05/2025 CBC WITH DIFFE RENTI AL/PL ATELE T lymphs (absolute) 1.6 x10e3 /uL 0.7-3. 1 normal Not Available [facility] ([facility]) [address] [place], [address], 03/05/2025 08:07:13 03/04/2003/05/2025 CBC WITH DIFFE RENTI AL/PL ATELE T monocytes(ab solute) 0.4 x10e3 /uL 0.1-0. 9 normal Not Available [facility] ([facility]) [address] [place], [address], 03/05/2025 08:07:13 03/04/2003/05/2025 CBC WITH DIFFE RENTI AL/PL ATELE T eos (absolute) 0.6 x10e3 /uL 0.0-0. 4 above high normal Not Available [facility] ([facility]) [address] [facility], [place], [address], 03/05/2025 08:07:13 03/04/2003/05/2025 CBC WITH DIFFE RENTI AL/PL ATELE T baso (absolute) 0.1 x10e3 /uL 0.0-0. 2 normal Not Available [facility] ([facility]) [address] [facility], [place], [address], 03/05/2025 08:07:13 03/04/2003/05/2025 CBC WITH DIFFE RENTI AL/PL ATELE T immature granulocytes 0 % not estab. Not Available [facility] ([facility]) [address] [facility], [place], [address], 03/05/2025 08:07:13 03/04/2003/05/2025 CBC WITH DIFFE RENTI AL/PL ATELE T immature grans (abs) 0.0 x10e3 /uL 0.0-0. 1 Not Available [facility] ([facility]) [address] [facility], [place], [address], 03/05/2025 08:07:13 03/04/2003/05/2025 CBC WITH DIFFE RENTI AL/PL ATELE T NRBC VIDEOGAME DESIGNER Not Available [facility] ([facility]) [address] [facility], [place], [address], 03/05/2025 08:07:13 03/04/2003/05/2025 CBC WITH DIFFE RENTI AL/PL ATELE T hematology comments: VIDEOGAME DESIGNER Not Available [facility] ([facility]) [address] [facility], [place], [address], 03/05/2025 08:07:13 03/04/20 25 03/05/2025 BASIC METAB OLIC PANEL (8) glucose 87 mg/dL 70-99 normal Not Available [facility] ([facility]) [address] [place], [address], 03/05/2025 08:07:13 03/04/20 25 03/05/2025 BASIC METAB OLIC PANEL (8) BUN 13 mg/dL 6-24 normal Not Available [facility] ([facility]) [address] [place], [address], 03/05/2025 08:07:13 03/04/2003/05/2025 BASIC METAB OLIC PANEL (8) creatinine 1.00 mg/dL 0.57-1 .00 normal Not Available [facility] ([facility]) [address] [place], [address], 03/05/2025 08:07:13 03/04/2003/05/2025 BASIC METAB OLIC PANEL (8) eGFR 69 mL/mi n/1.7 3 >59 normal Not Available [facility] ([facility]) [address] [place], [address], 03/05/2025 08:07:13 03/04/20 25 03/05/2025 BASIC METAB OLIC PANEL (8) BUN/creatini ne ratio 13 9-23 normal Not Available [facility] ([facility]) [address] [place], [address], 03/05/2025 08:07:13 03/04/2003/05/2025 BASIC METAB OLIC PANEL (8) sodium 139 mmol/ L 134-14 4 normal Not Available [facility] ([facility]) [address] [place], [address], 03/05/2025 08:07:13 03/04/20 25 03/05/2025 BASIC METAB OLIC PANEL (8) potassium 4.8 mmol/ L 3.5-5. 2 normal Not Available [facility] ([facility]) [address] [facility], [place], [address], 03/05/2025 08:07:13 03/04/2003/05/2025 BASIC METAB OLIC PANEL (8) chloride 104 mmol/ L 96-106 normal Not Available [facility] ([facility]) [address] [facility], [place], [address], 03/05/2025 08:07:13 03/04/2003/05/2025 BASIC METAB OLIC PANEL (8) carbon dioxide, total 23 mmol/ L 20-29 normal Not Available [facility] ([facility]) [address] [facility], [place], [address], 03/05/2025 08:07:13 03/04/2003/05/2025 BASIC METAB OLIC PANEL (8) calcium 9.1 mg/dL 8.7-10 .2 normal Not Available [facility] ([facility]) [address] [facility], [place], [address], 03/05/2025 08:07:13 03/04/2003/05/2025 LIPID PANEL cholesterol, total 190 mg/dL 100-19 9 normal Not Available [facility] ([facility]) [address] [facility], [place], [address], 03/05/2025 08:07:13 03/04/2003/05/2025 LIPID PANEL triglyceride s 91 mg/dL 0-149 normal Not Available [facility] ([facility]) [address] [facility], [place], [address], 03/05/2025 08:07:13 03/04/2003/05/2025 LIPID PANEL HDL cholesterol 48 mg/dL >39 normal Not Available [facility] ([facility]) [address] [facility], [place], [address], 03/05/2025 08:07:13 03/04/2003/05/2025 LIPID PANEL VLDL cholesterol abimbola 17 mg/dL 5-40 Not Available [facility] ([facility]) [address] [place], [address], 03/05/2025 08:07:13 03/04/2003/05/2025 LIPID PANEL LDL chol calc ([facility]) 125 mg/dL 0-99 above high normal Not Available [facility] ([facility]) [address] [place], [address], 03/05/2025 08:07:13 03/04/2003/05/2025 LIPID PANEL LDL calc comment: VIDEOGAME DESIGNER Not Available [facility] ([facility]) [address] [facility], [place], [address], 03/05/2025 08:07:13 03/04/2003/05/2025 TSH RFX ON ABNOR MAL TO FREE T4 TSH 1.310 uIU/m L 0.450- 4.500 normal Not Available [facility] ([facility]) [address] [place], [address], 03/05/2025 08:07:14 03/17/2003/18/2025 CBC WITH DIFFE RENTI AL/PL ATELE T WBC 7.7 x10e3 /uL 3.4-10 .8 normal Not Available [facility] ([facility]) [address] [place], [address], 03/20/2025 12:05:44 03/17/2003/18/2025 CBC WITH DIFFE RENTI AL/PL ATELE T RBC 4.02 x10e6 /uL 3.77-5 .28 normal Not Available [facility] ([facility]) [address] [place], [address], 03/20/2025 12:05:44 03/17/20 25 03/18/2025 CBC WITH DIFFE RENTI AL/PL ATELE T hemoglobin 12.2 g/dL 11.1-1 5.9 normal Not Available [facility] ([facility]) [address] [place], [address], 03/20/2025 12:05:44 03/17/20 25 03/18/2025 CBC WITH DIFFE RENTI AL/PL ATELE T hematocrit 36.3 % 34.0-4 6.6 normal Not Available [facility] ([facility]) [address] [facility], [place], [address], 03/20/2025 12:05:44 03/17/20 25 03/18/2025 CBC WITH DIFFE RENTI AL/PL ATELE T MCV 90 fL 79-97 normal Not Available [facility] ([facility]) [address] [facility], [place], [address], 03/20/2025 12:05:44 03/17/2003/18/2025 CBC WITH DIFFE RENTI AL/PL ATELE T MCH 30.3 pg 26.6-3 3.0 normal Not Available [facility] ([facility]) [address] [place], [address], 03/20/2025 12:05:44 03/17/20 25 03/18/2025 CBC WITH DIFFE RENTI AL/PL ATELE T MCHC 33.6 g/dL 31.5-3 5.7 normal Not Available [facility] ([facility]) [address] [place], [address], 03/20/2025 12:05:44 03/17/20 25 03/18/2025 CBC WITH DIFFE RENTI AL/PL ATELE T RDW 12.6 % 11.7-1 5.4 Not Available [facility] ([facility]) [address] [place], [address], 03/20/2025 12:05:44 03/17/20 25 03/18/2025 CBC WITH DIFFE RENTI AL/PL ATELE T platelets 335 x10e3 /uL 150-45 0 normal Not Available [facility] ([facility]) [address] [facility], [place], [address], 03/20/2025 12:05:44 03/17/20 25 03/18/2025 CBC WITH DIFFE RENTI AL/PL ATELE T neutrophils 69 % not estab. normal Not Available [facility] ([facility]) [address] [facility], [place], [address], 03/20/2025 12:05:44 03/17/20 25 03/18/2025 CBC WITH DIFFE RENTI AL/PL ATELE T lymphs 20 % not estab. normal Not Available [facility] ([facility]) [address] [facility], [place], [address], 03/20/2025 12:05:44 03/17/2003/18/2025 CBC WITH DIFFE RENTI AL/PL ATELE T monocytes 6 % not estab. normal Not Available [facility] ([facility]) [address] [facility], [place], [address], 03/20/2025 12:05:44 03/17/2003/18/2025 CBC WITH DIFFE RENTI AL/PL ATELE T eos 4 % not estab. normal Not Available [facility] ([facility]) [address] [facility], [place], [address], 03/20/2025 12:05:44 03/17/20 25 03/18/2025 CBC WITH DIFFE RENTI AL/PL ATELE T basos 1 % not estab. normal Not Available [facility] ([facility]) [address] [place], [address], 03/20/2025 12:05:44 03/17/20 25 03/18/2025 CBC WITH DIFFE RENTI AL/PL ATELE T immature cells VIDEOGAME DESIGNER Not Available [facility] ([facility]) [address] [place], [address], 03/20/2025 12:05:44 03/17/20 25 03/18/2025 CBC WITH DIFFE RENTI AL/PL ATELE T neutrophils (absolute) 5.2 x10e3 /uL 1.4-7. 0 normal Not Available [facility] ([facility]) [address] [place], [address], 03/20/2025 12:05:44 03/17/20 25 03/18/2025 CBC WITH DIFFE RENTI AL/PL ATELE T lymphs (absolute) 1.6 x10e3 /uL 0.7-3. 1 normal Not Available [facility] ([facility]) [address] [place], [address], 03/20/2025 12:05:44 03/17/20 25 03/18/2025 CBC WITH DIFFE RENTI AL/PL ATELE T monocytes(ab solute) 0.4 x10e3 /uL 0.1-0. 9 normal Not Available [facility] ([facility]) [address] [place], [address], 03/20/2025 12:05:44 03/17/20 25 03/18/2025 CBC WITH DIFFE RENTI AL/PL ATELE T eos (absolute) 0.3 x10e3 /uL 0.0-0. 4 normal Not Available [facility] ([facility]) [address] [place], [address], 03/20/2025 12:05:44 03/17/20 25 03/18/2025 CBC WITH DIFFE RENTI AL/PL ATELE T baso (absolute) 0.1 x10e3 /uL 0.0-0. 2 normal Not Available [facility] ([facility]) [address] [place], [address], 03/20/2025 12:05:44 03/17/20 25 03/18/2025 CBC WITH DIFFE RENTI AL/PL ATELE T immature granulocytes 0 % not estab. Not Available [facility] ([facility]) [address] [facility], [place], [address], 03/20/2025 12:05:44 03/17/2003/18/2025 CBC WITH DIFFE RENTI AL/PL ATELE T immature grans (abs) 0.0 x10e3 /uL 0.0-0. 1 Not Available [facility] ([facility]) [address] [facility], [place], [address], 03/20/2025 12:05:44 03/17/2003/18/2025 CBC WITH DIFFE RENTI AL/PL ATELE T NRBC VIDEOGAME DESIGNER Not Available [facility] ([facility]) [address] [facility], [place], [address], 03/20/2025 12:05:44 03/17/2003/18/2025 CBC WITH DIFFE RENTI AL/PL ATELE T hematology comments: VIDEOGAME DESIGNER Not Available [facility] ([facility]) [address] [facility], [place], [address], 03/20/2025 12:05:44 03/17/2003/18/2025 IMMUN OGLOB ULINS A/E/G /M, SERUM immunoglobul in g, qn, serum 1078 mg/dL 586-16 02 Not Available [facility] ([facility]) [address] [facility], [place], [address], 03/20/2025 12:05:45 03/17/2003/18/2025 IMMUN OGLOB ULINS A/E/G /M, SERUM immunoglobul in A, qn, serum 279 mg/dL 87-352 normal Not Available [facility] ([facility]) [address] [facility], [place], [address], 03/20/2025 12:05:45 03/17/20 25 03/18/2025 IMMUN OGLOB ULINS A/E/G /M, SERUM immunoglobul in M, qn, serum 118 mg/dL 26-217 Not Available [facility] ([facility]) [address] [facility], [place], [address], 03/20/2025 12:05:45 03/17/2003/20/2025 IMMUN OGLOB ULINS A/E/G /M, SERUM immunoglobul in E, total 45 IU/mL 6-495 Not Available [facility] ([facility]) [address] [facility], [place], [address], 03/20/2025 12:05:45 03/17/2003/18/2025 C4+C3 complement C3, serum 146 mg/dL 82-167 Not Available [facility] ([facility]) [address] [facility], [place], [address], 03/20/2025 12:05:45 03/17/2003/18/2025 C4+C3 complement C4, serum 22 mg/dL 12-38 Not Available [facility] ([facility]) [address] [facility], [place], [address], 03/20/2025 12:05:45 03/17/2003/18/2025 ESR-W ES+CR P sedimentatio n rate-westerg kina 5 mm/HR 0-32 normal Not Available [facility] ([facility]) [address] [facility], [place], [address], 03/20/2025 12:05:46 03/17/2003/18/2025 ESR-W ES+CR P C-reactive protein, quant 3 mg/L 0-10 normal Not Available [facility] ([facility]) [address] [place], [address], 03/20/2025 12:05:46 03/17/2003/18/2025 RPR, RFX QN RPR/C ONFIR M TP RPR Non Reacti ve non reacti ve Not Available [facility] ([facility]) [address] [facility], [place], [address], 03/20/2025 12:05:46 03/17/2003/18/2025 HIV AB/P2 4 AG WITH REFLE X HIV Ab/P24 Ag screen Non Reacti ve non reacti ve HIV-1 /HIV- 2 antib odies and HIV-1 p24 antig en were NOT detec joann. There is no labor atory evide nce of HIV infec tion. HIV Negat lissette Not Available [facility] ([facility]) [address] [facility], [place], [address], 03/20/2025 12:05:46 10/17/1910/10/2024 MAMMO , scree rosalinda, bilat eral No observ ation record ed. [email or web address] [facility] [address] [place], [address], 10/17/2024 08:11:35 03/06/2003/04/2025 MRI, brain , w/o contr ast No observ ation record ed. [email or web address] [address], [address], 03/20/2025 10:13:39 Result Notes None recorded. Problems Name Problem SNOMED Code Status Onset Date Resolution Date Notes Provider Name and Address Organization Details Recorded Time Neck pain 22521440 Completed 06/20/2016 Milena hyatt [facility] 7 15:02:25 Loss of hair 903047129 Completed 06/20/2016 Milena hyatt [facility] 7 15:01:56 Dysmenor kathia 071558792 Completed 06/20/2016 Milena hyatt [facility] 7 15:01:52 Knee pain Completed 06/20/2016 Milena hyatt [facility] 7 15:02:16 Ankylosi ng spondyli tis 2563063 Active ALLEN Mclean, [facility] 5 15:16:21 Smoker 81425945 Completed 06/20/2016 ALLEN Huerta, [facility] 7 14:24:18 Dysfunct ional uterine bleeding Active ALLEN Mclean, [facility] 5 15:16:20 Facial eczema 004591058 Active around eyes and lips ALLEN Mclean, [facility] 5 15:16:21 Eczema of wrist 889264986 Completed 06/20/2016 Milena taylor [facility] 7 15:02:13 Pain of joint of ankle 045311605 [facility] 15:[facility] Acute pharyngi tis 391229135 Completed 201112/13/2013 RECORDED 12/22/19 12 3:50PM BY WILNER DOSS ON/ADDEN DUM [facility] 6 10:25:18 Cough 25819682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 eczema, pt to stop wearing bangle on that wrist, use aquaphor and steroid cream and see derm Hypercholesterolemia 136 58357 E78.00 Fatigue 67616468 R53.83 Body mass index 30+ - obesity 683164246 Z68.35 Z68.36 pt is working on weight loss and exercise Seborrheic dermatitis of scalp 135709935 L21.0 [id number] Milena lemus MD Main Office [address] [address] 12/21/2018 12:44:48 12/21/2018 13:55:16 Dysuria 02510239 R30.0 urine dip positive for UTI tx as below, void after intercours e and keep well hydrated Eczema 89047076 L30.9 tx Contracept ion care management 219552007 Z30.9 pt to se tup appt wondering about control, is smoking so I told her no OCPs' pt to see teacher learning 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 Will send out culture. Advised to push clear fluids. Call if she has worseing pain Dysuria 98438874 R30.0 Right lowe r quadrant pain 591864592 R10.31 Not typical for stone pain but possible due to localizing sx and gross hematuria. Push fluids, rest, OOW today. Call if pain increases, ok to use otc pain med. No clinical evidence of appendicit is or pelvic infection at this time. [id number] Milena lemus MD Main Office [address] [address] 04/08/2019 12:39:28 04/08/2019 13:48:12 Adult health examination 346229340 Z00.00 pt is utd on pap and mammo is ordered by teacher learning disabled, lost 75lbs total. Screening for malignant neoplasm of breast 656105601 Z12.39 pt to set up mammogram Exercise-i nduced asthma 98319866 J45.990 well controlled . Tobacco de pendence syndrome 10494458 F17.290 pt has been vaping nicotine, I strongly told her to stop vaping due to the health concerns and people getting fatal lung disease, she understand s and said she would, I recc nicotine patch and gum as she is still addicted to nicotine since vaping regularly, she does not want chantix. Ankylosing spondylitis 8152131 M45.9 pt needs a new rheumatolo gist, has neck pain, had been on Enbrel but not seeing Dr Arthur anymore, will x spasm, refer to rheum Anxiety state 054106548 F41.1 anxiety has flared, increase sertraine to 100mg a day Mass of lower limb 87016 7000 R22.42 behind left knee, ? lipoma, will get Us to define if solid or cystic and then refer for removal [id number] Milena lemus MD Main Office [address]40 [facility] 207 [facility] [place] [address] 07/29/2019 13:48:02 07/29/2019 14:59:03 Ankylosing spondylitis 4275310 M45.9 pt is going to start Humira for , is pleased with Dr Peña's care. Anxiety state 603728778 F41.1 anxiety has flared, increase sertraline to 150mg a day, if not better after 3 months ok to lower to 100mg a day Tobacco de pendence syndrome 95202187 F17.290 pt has been vaping nicotine, I strongly told her to stop vaping due to the health concerns and people getting fatal lung disease, she understand s and said she is cutting back. will stop vaping and try nicotine patch does not want chantix [id number] Milena lemus MD [facility] [address] [facility] [address] [place] [address] 01/23/2020 13:07:24 01/30/2020 10:53:37 Anxiety state 303478399 F41.1 anxiety is up due to the pandemic, will increase sertraline to 200mg a day and reassess at [facility] 4months. Can add in another med(wellbu felicita)if not fully treated at this dose Ankylosing spondylitis 3809911 M45.9 waiting to get on Humara. followed by Dr Peña [id number] Aime Marvin MD [facility] [address] [facility] [address] [facility] [place] [address] 09/27/2020 13:28:10 10/01/2020 10:43:11 Anxiety state 570663435 F41.1 This has been increasing and she has been OOW for 2 days and advised to stay OOW tomorrow. We will do a limited supply of benzos to help her to get through this. Major depr essive disorder 012443891 F32.9 F32.1 Depression is getting worse as is her anxiety and she is unable to work. She is looking for a mental health provider. In the meantime she will start wellbutrin and continue sertraline . She will f/u with her PCP in 3-4 weeks. We will also do a med consult to [facility]. [id number] Mil[facility] [address] [facility] [address] [place] [address] 10/15/2020 08:33:59 10/18/2020 12:58:32 Anxiety state 707571358 F41.1 anxiety is very poorly controlled . [...] depr ession single episode, in partial remission 37680478 F32.4 depression is very active, see above, no suicidal thoughts or plans but if they occur she knows to seek urgent eval in ER, pt to get a therapist and a med prescriber Insomnia 766038241 G47.0 9 very poor sleepn related to anxiety and depression [id number] Milena lemus MD Main Office [address] [facility] [address] [place] [address] 10/31/2020 12:58:55 11/01/2020 15:15:58 Anxiety state 502478526 F41.1 on sertraline , wellbutrin , prn lorazepam and in ocunsleing , still very anxious, continue counseling Major depr ession single episode, in partial remission 03723692 F32.4 depression is very active, see above, I advised pt to get an appt with a med prescriber to help with med choices, for now stay on what she is on, continue therapy Insomnia 137717920 G47.0 9 very poor sleep related to anxiety and depression [id number] Milena lemus MD [facility] [address] [facility] [address] [place] [address] 11/19/2020 13:05:47 11/20/2020 08:40:21 Anxiety state 937907257 F41.1 on sertraline , wellbutrin , prn lorazepam and in counsleing and will see psychiatri st this week. still very anxious, continue counseling and meds. out of work note written, state and FMLA forms all filled out last week Insomnia 087732254 G47.0 9 very poor sleep related to anxiety and depression Major depr ession single episode, in partial remission 23454468 F32.4 active, continue meds, will see psychiatry and continue counseling [id number] Aime Marvin MD Main Office [address] [facility] [address] [place] [address] 11/27/2020 14:58:40 11/27/2020 15:39:28 Left flank pain 514806775 R10.9 Possibly from kidney stones. Will get an U/S to evaluate. May have passed since pain is no longer present. Acute pyelonephritis 366 57831 N10 Looks non-toxic and will treat with po abx. She understand s that she needs to go to the ER if she develops a high sustained fever or persistent vomiting. [id number] Milena lemus MD [facility] [address] [facility] [address] [place] [address] 12/19/2020 08:44:11 12/20/2020 11:33:52 Anxiety state 848144641 F41.1 on sertraline , wellbutrin , prn lorazepam and in counsleing and will see psychiatri st this week. still very anxious, continue counseling and meds. out of work note written, state and FMLA forms all filled out last week Major depr ession single episode, in partial remission 44659969 F32.4 active, continue meds, will see psychiatry early december and continue counseling weekly, pt thinks the buproprion has helped as well. out of work through 01/19 when I will reeevaluat e Insomnia 066027471 G47.0 9 very poor sleep related to anxiety and depression not on prescripti on at this time, occasional ly uses CBD if needed [id number] Milena lemus MD [facility] [address] [facility] [address] [facility] [place] [address] 01/16/2021 08:35:13 01/18/2021 12:17:14 Anxiety state 104761442 F41.1 I reviewed psychaitry note, pt had wellbutrin increased just a few days ago, will try hydroxizin e for sleep and will increase lorazepam to 1mg for panic attacks. note to state out of work through 03/01/21. will reassess 03/01 at Major depr ession single episode, in partial remission 31149798 F32.4 wellbutrin recently increased, will reassess 03/01 Insomnia 505796834 G47.0 9 very poor sleep related to anxiety and depression not on prescripti on at this time, trial of hydrozxy[place] [id number] Milena lemus MD Main Office [address] [facility] [address] [place] [address] 03/01/2021 09:58:32 03/01/2021 10:49:16 Adult health examination 510988165 Z00.00 pt is utd on pap and mammo is ordered by teacher learning disabled, Anxiety state 249936567 F41.1 pt is on wellbutrin 300mg and sertraline 100mg and hydroxyzin e at night for sleep. Sleep is still disrupted and pt uses lorazepam only for high anxiety times. Pt is still out of work and should stay out of work for at least another 2 weeks while her medication s/sleep and depression are stabilized Exercise-i nduced asthma 42385108 J45.990 well controlled . Needs infl uenza immunization 480918935 Z23 Body mass index 30+ - obesity 167399683 E66.9 pt is working on weight loss and exercise just started weight watchers. Hypercholesterolemia 136 57004 E78.00 check fasting Fatigue 27661390 R53.83 check labs History of abnormal cervical Papanicolaou smear 298476030 Z87.42 utd on teacher learning disabled followup with teacher learning disabled [id number] Milena lemus MD [facility] [address] [place] [address] 07/15/2021 12:24:48 07/16/2021 09:17:30 Blood in urine 44494700 R31.9 urine test not accurate but was not given a clean catch cup. will repeat a clean catch. Ankylosing spondylitis 3947762 M45.[address] Peña. she will arrange a follow-up has not seen him for some time, having back and hip pain Major depr ession single episode, in partial remission 28786214 F32.4 on wellbutrin and sertraline . is stressed with looking for work. will increase sertraine Anxiety 65323864 F41.9 using lorazepam as needed, trying to use it rarely. is on sertraline 100mg a day, will increase to 150mg and try to better control. [id number] Milena lemus MD Main Office [address] [place] [address] 07/31/2021 07:52:57 07/31/2021 17:03:03 Anxiety state 712418927 F41.1 pt is on meds, they are helping her anxiety and mood doing a form unemployme nt pt feels she is able to work on a full-time basis without restrictio ns. [id number] SYLVIA MATTHEWS MD Main Office [address] [place] [address] 03/16/2023 14:11:51 03/16/2023 14:55:21 Adult health examination 704653629 Z00.00 Health Maintenanc e FemaleA) Patient was [...] nfluenza: declinedTd AP: 12/26/2014Z anushka: due at 87WGA00: due at 28TZAZ62: 02/23/2015P CV20:PCV15 :COVID: 09/05/2020, 05/23/2021 D) Routine blood work orderedE) Updated patient's history RTC in one year for annual exam or sooner if any acute complaints Exercise-i nduced asthma 35047845 J45.990 - currently on pro-air and use as needed Ankylosing spondylitis 0688540 M45.9 - chronic problem, pt does mention that it has been worsening in the last few years- pt was previously seeing rheumatolo gy however as not since COVID- ordered ERS and CRP- c/w cyclobenza angela 10mg as needed- pt interested and following back with Dr. Peña, pt will register with [facility] and will refer afterwards Anxiety state 679732549 F41.1 - WILMER-7 score of 19- not under good control- will switch bupropion XL 150mg to buspirone 7.5mg BID> please note that in the past bupropion was increased to 300mg which caused reduced sexual drive for patient and pt felt like a zombie- c/w sertraline 100mg QD- counsellin g provided- c/w lorazepam 1mg QD-> big crowds and driving on highway Irritable bowel syndrome 42811443 K58.9 - under good control Screening for malignant neoplasm of colon 300890093 Z12.11 Fatigue 01258615 R53.83 Z00.00 Hyperlipidemia 14028144 E78.5 Z00.00 Hepatitis C screening 41 0269562 Z11.59 Body mass index 30+ - obesity 684942353 Z68.34 - BMI of 34.5 Ex-smoker 9297078 Z87.89 1 - stopped at 45- pt hx of 13 pack years Severe danny or depression, single episode 5199574147 05 F32.2 - PHQ-9 score of 16- not under good control- as per patient anxiety worse than depressive symptoms- will switch bupropion XL 150mg to buspirone 7.5mg BID> please note that in the past bupropion was increased to 300mg which caused reduced sexual drive for patient and pt felt like a zombie- c/w sertraline 100mg QD- denies SI/HI- counsellin g provided Obesity 405603881 E66.9 - BMI of 34.5- Cut down [...] minutes cumulative of moderate exercise recommende dShannon [id number] Aime Marvin MD Main Office [address] [place] [address] 06/08/2024 13:15:50 06/08/2024 13:49:12 Acute pharyngitis 938989500 J02.9 in office strep test is negative Viral uppe r respiratory tract infection 517842778 J06.9 x1.5 weeks of congestion , SO, sore throat-sis ter was recently sick over the holidays with covid>home covid test is negative-d enies of any measureabl e fever, chills, sob, chest pain-has been taking OTC tylenol, sudafed, and ibuprofen which provides relief-PE was unremarkab le, lungs were CTA b/l-discus sed to continue with conservati ve measuremen ts Nausea 925345486 R11.0 x4 days-only in the morning-de nies of any vomiting-r eports boyfriend was recently sick with the stomach bug-likely viral in nature, pt requests hcg test [id number] SYLVIA MATTHEWS MD Main Office [address] [place] [address] 08/01/2024 13:03:44 08/01/2024 13:34:46 Adult health examination 570433606 Z00.00 [facility] FemaleA) Patient was counseled on healthy [...] AP: 12/26/2014 -> orderedZos ter: due at 42JVV06: due at 54IUFV27: 02/23/2015P CV20:PCV15 :COVID: 09/05/2020, 05/23/2021 D) Routine blood work orderedE) Updated patient's history RTC in one year for annual exam or sooner if any acute complaints Anxiety state 709242318 F41.1 - WILMER-7 score of 3- stable- c/w buspirone 7.5mg BID> please note that in the past bupropion was increased to 300mg which caused reduced sexual drive for patient and pt felt like a zombie- pt stopped sertraline 150mg QD -> mood under good control- counsellin g provided- c/w lorazepam 1mg QD-> big crowds and driving on highway Irritable bowel syndrome 09177005 K58.9 - type: diarrhea- intermitte nt- recommende d probiotics Severe danny or depression, single episode 1760425535 05 F32.2 - PHQ-9 score of 1- stable- pt has stopped sertraline 150mg QD- denies SI/HI- counsellin g provided- RTC in 6 months Ex-smoker 9719361 Z87.89 1 - stopped at 45- pt hx of 13 pack years Ankylosing spondylitis 7304657 M45.9 - chronic problem, pt does mention that it has been worsening in the last few years- pt was previously seeing rheumatolo gy however as not since COVID- c/w cyclobenza nagela 10mg as needed Screening for malignant neoplasm of breast 169656498 Z12.39 Screening for malignant neoplasm of colon 427317187 Z12.11 Requires a tetanus booster 233655797 Z28.39 Fatigue 64625015 R53.83 Z00.00 Hyperlipidemia 69803743 E78.5 Z00.00 FASTING Eczema 21666531 L30.9 Exercise-i nduced asthma 88657364 J45.990 - currently on pro-air and use as needed, refilled Body mass index 30+ - obesity 232818485 E66.9 Z68.34 - BMI of 34.5- Cut [...] or 150 minutes cumulative of moderate exercise recommendzay d. [id number] Aime Marvin MD Main Office 3640 [facility] [address] [place] [address] 01/02/2025 15:13:00 01/02/2025 15:41:29 Migraine without aura, not refractory 203758022 G43.736 7542104 hx of migraines since childhood- worsening migraines over the last 6 months-ons et prior to menses>sim ilar trigger when she was in her teens/20s- is perimenopa usal-endor ses photo sensitivit y, nausea, vomiting-d enies of any auras-no longer gets relief from OTC tylenol/ib uprofen-wi ll trial sumatripta n and f/u in 4-6 weeks [id number] SYLVIA MATTHEWS MD Main Office [address] [facility] [address] [place] [address] 02/17/2025 15:12:58 02/17/2025 15:57:27 Severe major depression, single episode 7022986940 05 F32.2 - PHQ-9 score of 0- stable- pt has stopped sertraline 150mg QD- denies SI/HI- counsellin g provided Anxiety state 387111310 F41.1 - worsened- WILMER-7 score of 20- had a discussion with patient to either (1) increase buspirone, (2) added back SSRI or (3) starting a new medication . pt would like to increase medication she is already on- increased buspirone 7.5mg BID to 10mg BID> please note that in the past bupropion was increased to 300mg which caused reduced sexual drive for patient and pt felt like a zombie- pt stopped sertraline 150mg QD -> mood under good control- counsellin g provided- c/w lorazepam 1mg QD-> big crowds and driving on highway Needs infl uenza immunization 523243024 Z23 19 YEARS AND OLDER ONLY Involuntary movement 267 039776 R25.9 2808479 - has been present for one year, worsening as it becoming more frequent- could be coming from worsening anxiety -> increased buspirone 10mg BID- however will work-up other causes- ordered mri of the brain- ordered bmp, mag, liver panel and TSH- can also consider EEG after inital work-up is negative [id number] Aime Marvin MD [facility] [address] [facility] [place] [address] 02/16/2025 12:32:43 02/17/2025 10:03:43 Migraine without aura, not refractory 607427778 G43.235 2191439 hx of migraines since childhood- onset prior to menses>sim ilar trigger when she was in her teens/20s- is perimenopa usal-endor ses photo sensitivit y, nausea, vomiting-d enies of any auras-gets relief with sumatripta n>frequenc y and severity have improved since being on this medication [id number] SYLVIA MATTHEWS MD Main Office [address] [facility] [place] [address] 03/17/2025 14:32:20 03/17/2025 15:16:02 Anxiety state 965650329 F41.1 - worsened- WILMER-7 score of 13- had a discussion with patient to either (1) increase buspirone, (2) added back SSRI or (3) starting a new medication . pt would like to increase medication she is already on- increased buspirone 10mg BID to 15mg BID> please note that in the past bupropion was increased to 300mg which caused reduced sexual drive for patient and pt felt like a zombie- pt stopped sertraline 150mg QD -> made mood worse- amara mora provided- c/w lorazepam 1mg QD-> big crowds and driving on highway Severe danny or depression, single episode [id number] 05 F32.2 - PHQ-9 score of 13- stable per patient but PHQ-9 score worsening- pt has stopped sertraline 150mg QD- to consider adding on duloxetine - denies SI/HI- amara mora provided Involuntary movement [id number] R25.9 - has been present for one year, worsening as it becoming more frequent- could be coming from worsening anxiety -> increased buspirone 15mg BID- however will work-up other causes- normal mri of the brain- normal bmp, mag, liver panel and TSH- can also consider EEG after initial work-up is negative Finding re ported by subject or history provider [id number] - has been on-going since January were patient keeps getting sick for about one week- never seen in the office for these symptoms- believed to be all viral- pt questionin g on why she keeps falling ill- please note patient also getting more headaches Health Concerns Section Related Observation LastModified by Organization Detai ls LastModified Time None Recorded Concern Status LastModified by Organization Details LastModified Time None Recorded Advance Directives Directive N: Payers Insurance Date Sequence Insurance Name Policy Number Policy Cardenas Covered Member ID Cardenas Member ID Guarantor Name 02/17/2025 1 [place] [facility] [place] [place] [id number] Lindsey Sladivar [id number] Lindsey Saldivar 03/17/2025 1 [place] [facility] [place] [place] [id number] Tevin Orellana [id number] Lindsey Saldivar 02/17/2025 1 [facility] [place] [place] [id number] Lindsey Saldivar [id number] Lindsey Saldivar 02/17/2025 1 [id number] Lindsey Saldivar [id number] Lindsey Saldivar 02/17/2025 1 [facility] [place]) [id number] Lindsey Saldivar [id number] Lindsey Saldivar Notes Date Note Type Note Provider Name and Address Organization Details Recorded Time 5 text/html Generic HPI TemplateReported by Patient Lindsey Saldivar is a 48 year old [...] regularActivity: uses stationary bike, no real regimen SYLVIA MATTHEWS MD [address], [address], [facility] 08/01/2024 13:33:18 5 text/html ROS as noted in the HPI Lindsey is a 49yr old F who presents for worsening migraines. Reports of noticing her migraine episodes to occur prior to her menses. Is currently in perimenopause. Has noticed her migraine episodes have increase in severity and frequency over the last 6 months. Has 1 episode a month- interferes with work. Endorses photo sensitivity, nausea, vomiting. Denies of any auras. Some relief with rest. No longer gets relief from ibuprofen+tylenol. RAMONE MER[facility], PA [address] [facility] [address], [place], [address], [facility] [place] 01/02/2025 23:19:15 5 text/html ROS as noted in the HPI Lindsey is a 49yr old F who presents for f/u on migraines. Reports of noticing her migraine episodes to occur prior to her menses. Is currently in perimenopause. Has noticed her migraine episodes have increase in severity and frequency over the last 6 months. Has 1 episode a month- interferes with work. Gets relief with 1 dose of sumatriptan. Tolerates medication well, no concerns. migraine symptoms: photo sensitivity, nausea, vomiting. Denies of any auras. VONNIE WALKER [address] [facility] [address], [place], [address], [facility] [place] 02/16/2025 13:04:04 5 text/html Anxiety/DepressionReported by PatientHPIFor quality, patient reportsincreased anxietyandpanic symptoms. For severity, patient reportsinterference with sleep. For context, patient reportsmajor life stressors. For associated symptoms, patient reportsemotional lability,anxiety,insomnia, restlessness/agitation, andtingling (paresthesia)but reportsdenies homicidal ideations,no significant weight gain,no significant weight loss,no visual/auditory hallucinations,energy good,no apathy, andmaintaining functionality. For duration, patient reportssymptoms lasting over 2 weeks. For onset/timing, patient reportsstill present. For modifying factors, patient reportssocial supportandmedications as directed.ROS as noted in the HPI Lindsey Yariel is a 49 year old F who presents to the clinic for discussion on mood and anxiety off her medications. Patient has stopped sertraline and wellbutrin and is currently on buspirone. Patient mentions she is no longer suffering from depression but her anxiety is not under good control. Mentions over the last 6 months symptoms have been worsening however worsened in the last 3 weeks. Feeling sick to her stomach, having a hard time sleeping and having a hard time shutting her mind off. There has been some increase stress at work. Is feeling slightly dismissed from her partner however they are currently anxious and dealing with some things as well. Patient also brings up today that for one year and half patient has been having involuntarily movements. She mentions she is having whole body involuntary spasm mostly affecting the neck. The neck will shift to the size and go all the way down her legs. She cannot control these. Family history of sister who had tics. No sounds associated. SYLVIA MATTHEWS MD [address], [address], [facility] 02/18/2025 20:01:46 5 text/html Anxiety/DepressionReported by PatientHPIFor quality, patient reportsincreased anxietyandpanic symptomsbut reportssymptoms improved. For severity, patient reportsinterference with sleep. For context, patient reportsmajor life stressors. For associated symptoms, patient reportsemotional lability,anxiety,insomnia, restlessness/agitation, andtingling (paresthesia)but reportsdenies homicidal ideations,no significant weight gain,no significant weight loss,no visual/auditory hallucinations,energy good,no apathy, andmaintaining functionality. For duration, patient reportssymptoms lasting over 2 weeks. For onset/timing, patient reportsstill present. For modifying factors, patient reportssocial supportandmedications as directed.Still having feelings of impending doom. Currently on buspirone 10mg BID.ROS as noted in the HPI Lindsey Saldivar is a 49 year old F who presents to the clinic for discussion on mood and anxiety off her medications. Patient has stopped sertraline and wellbutrin and is currently on buspirone. Patient mentions she is no longer suffering from depression but her anxiety is not under good control. Mentions over the last 6 months symptoms have been worsening however worsened in the last 3 weeks. Feeling sick to her stomach, having a hard time sleeping and having a hard time shutting her mind off. There has been some increase stress at work. Is feeling slightly dismissed from her partner however they are currently anxious and dealing with some things as well. Patient also brings up today that for one year and half patient has been having involuntarily movements. She mentions she is having whole body involuntary spasm mostly affecting the neck. The neck will shift to the size and go all the way down her legs. She cannot control these. Family history of sister who had tics. No sounds associated. Patient mentions that since January she keeps getting sick. Feels like she has been getting several upper respiratory infections. SYLVIA MATTHEWS MD [address] [address], [place], [address], [facility] 03/17/2025 15:28:47 OBGyn Episode No OBEpisode recorded.
== END 2025-03-30 07:39 | disposition home or self-care (01) ==
LOC: HO.LNP 07:38
PROVIDERS: PCP Student in an Organized Health Care Education/Training Program; Visit Provider Advanced Practice Midwife
DX: Z01.419 Encounter for gynecological examination (general) (routine) without abnormal findings (principal); Z87.42 Personal history of other diseases of the female genital tract
CPT/HCPCS: 87626; 88175

== ENCOUNTER 2025-03-30 07:38 | Outpatient (AMB) | payer BC, SELFPAY ==
--- OUTSIDE RECORDS SUMMARY | 2025-03-30 07:41 | XMS_ITS | Clinical Summary ---
Author Organization [facility] Address [address] [place] [address] Phone Care Team Providers Care Content Development Manager Name Role Phone Sylvia Matthews MD Primary Care Provider [phone] Allergies Active Allergy Reactions Criticality Noted Date Comments Nitrofurantoin Monohyd/M-Cryst Swelling 10/07/2024 BODY SWELLING W/ REDNESS Morphine Itching,Nausea and/or Vomiting 10/07/2024 Hydrocodone-Acetaminophen Itching,Nausea and/or Vomiting 10/07/2024 Medications albuterol 90 mcg/actuation inhaler INHALE 2 PUFFS BY MOUTH EVERY 6 TO 8 HOURS DIRECTED 08/01/2024 Active busPIRone (BUSPAR) 7.5 MG tablet Take 1 tablet by mouth 2 (two) times a day. 09/07/2024 Active norethindrone (MICRONOR) 0.35 mg tablet Take 1 tablet by mouth every morning. 09/15/2024 Active sertraline (ZOLOFT) 100 MG tablet Take 1.5 tablets by mouth every morning. 07/04/2024 Active Medication-Free Text Birthcontrol: Mini Pill (Pogesterone- only) Active Active Problems No known active problems Social History Tobacco Use Types Packs/Day Years Used Date Smoking Tobacco: Former Cigarettes Passive Smoke Exposure: Past Smokeless Tobacco: Never Comments:vapes Education Answer Date Recorded Are you interested in more education? Not on anatoliy e 10/07/2024 Are you concerned about learning? Not on file 10/07/2024 No 10/07/2024 No 10/07/2024 Digital Access Answer Date Recorded No 10/07/2024 No 10/07/2024 Reliable internet access at home? Not on file 10/07/2024 Device with a working camera? Not on file Comments Unknown Sex and Gender Information Value Date Recorded Sex Assigned at Not on file Legal Sex Female 10:10 AM EDT Gender Identity Not on file Sexual Orientation Not on file Last Filed Vital Signs Vital Sign Reading Time Taken Comments Blood Pressure 109/75 10/07/2024 10:35 AM EDT Pulse 85 10/07/2024 10:35 AM EDT Temperature 37.1 C (98.7 F) 10/07/2024 10:35 AM EDT Respiratory Rate 20 10/07/2024 10:35 AM EDT Oxygen Saturation 98% 10/07/2024 10:35 AM EDT Inhaled Oxygen Concentration - - Weight - - Height - - Body Mass Index - - Plan of Treatment Health Maintenance Due Date Last Done Comments Adult Td,Tdap Booster 1976 LIPID PANEL 1976 DEPRESSION SCREENING 1988 SMOKING Hx and SMOKELESS TOB ACCO SCREENING 1989 HEPATITIS C SCREENING 1994 HIV ONE-TIME SCREENING (18-6 5 YEARS) 1994 PAP SMEAR 1997 MAMMOGRAM 2016 COLOGUARD 2021 COLONOSCOPY 2021 COLORECTAL CANCER SCREENING 2021 FIT TEST 2021 FOBT 2021 SIGMOIDOSCOPY 2021 VIRTUAL COLONOSCOPY 2021 INFLUENZA VACCINE (#1) 2024 COVID-19 VACCINE ( - 2024-2 6 season) 2025 HEPATITIS A VACCINES Aged Out No long er eligible based on patient's age to complete this topic HIB VACCINES Aged Out No longer eligi ble based on patient's age to complete this topic MENINGOCOCCAL VACCINES (ACWY) Aged Out No longer eligible based on patient's age to complete this topic MENINGOCOCCAL VACCINES (B) Aged Out N o longer eligible based on patient's age to complete this topic PNEUMOCOCCAL VACCINES (0-49 years) Aged Out No longer eligible based on patient's age to complete this topic Medical Devices Not on file Insurance [facility] Rom [address] [place] [facility] [address] [place] [id number] [facility] [address] [place] [id number] [facility] [address] [place] [id number] [facility] Care Teams Content Development Manager Relationship Specialty Start Date End Date Sylvia Matthews MD [address] [address] PCP - General Family Medicine 10/07/24 Additional Source Comments The information contained in this document represents components of the legal health record. It is not the complete legal health record.[facility]
--- NOTE | 2025-03-30 07:42 | A.OFFVIS_ITS ---
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 Sr. Strategic Sourcing Manager concerns: hot flashes. Regular monthly menses. Currently is not sexually active w/partner. She denies vaginal itching or irritation. STI screening offered; she declines. She tries to eat healthy and stays active with exercise. Current vaping daily. Denies family history of ovarian cancer. Last pap smear 2021, negative. History of LEEP. Mammogram: 2024. [facility] Medical History Bilateral breast cysts ROSEY III (cervical intraepithelial neoplasia III) Exercise-induced asthma Ankylosing spondylitis Depression with anxiety Surgical History H/O hand surgery History of loop electrical excision procedure (LEEP) Hx of bilateral breast reduction surgery H/O wrist surgery Family History Maternal Grandmother Ovarian cancer Throat cancer Social History Alcohol intake: never Patient Tobacco Use Status: Never used Tobacco e-Cigarette/Vaping Use: Currently Using Sexual orientation: Straight/Heterosexual Gender identity: Female Female Reproductive History Menstrual Date of last menstrual period: 03/14/25 control method: pills Total pregnancies: 2 Full term: 1 Number of Living Children: 1 Date of last pap smear: 12/18/23 (neg pap and hpv) History of abnormal pap smear: Yes (see intake note) Date of Mammogram: 10/10/24 (Birad 2) Review of Systems Const All systems reviewed & are unremarkable except as noted in HPI and below Reports as per HPI Eyes Reports no additional complaints ENT Reports no additional complaints Card Reports no additional complaints Resp Reports no additional complaints GI Reports as per HPI and Reports no additional complaints Reports as per HPI Musc Reports no additional complaints Skin/Breast Reports as per HPI Neuro Reports no additional complaints Psych Reports no additional complaints Endo Reports no additional complaints Max/Lymph Reports no additional complaints Aller/Immun Reports no additional complaints Physical Exam Vital Signs: Last Vital Signs BP 124/82 03/30/25 07:48 BMI result Body Mass Index 34.2 Const General: cooperative, healthy appearing, no acute distress, well developed and alert Orientation/consciousness: patient oriented x3 HEENT Head: Yes normal to inspection Eyes General: appearance normal, both eyes and all related structures Neck Neck: Yes normal visual inspection Thyroid: Thyroid normal Chest Chest palpation & inspection: normal inspection of the chest and other (no puckering, dimpling, peau de orange, retraction, discharge, masses) Breast/axilla inspection: normal inspection of the breasts Breast/axilla palpation: normal palpation of the breasts Resp Effort & Inspection: normal respiratory effort GI Inspection: Yes normal to inspection Palpation (GI): Soft to palpation Rectal Exam - Female: deferred General: Yes bladder normal to palpation External Female Exam: normal external appearance and normal appearance of the urethra Speculum Exam - Vagina: normal appearance of the vagina, normal palpation and normal vaginal discharge Speculum Exam - Cervix: normal appearance of the cervix and normal palpation Bimanual exam- vagina & uterus: normal bimanual exam, normal palpation, uterine size normal, bladder normal to palpation, normal palpation and non-tender Bimanual Exam- Adnexa, other: no masses Skin General skin exam: no rashes or lesions noted Rashes: no rashes Neuro General: patient oriented x3 Cognition (Neuro): normal cognition Extrem General: Yes normal to inspection Psych Attitude: cooperative Thought process: Normal thought process present Assessment & Plan Assessment & Plan (1) History of abnormal cervical Pap smear: Code(s): Z87.42 - Personal history of other diseases of the female genital tract Category: Medical Plan: Pap obtained await results for final plan of care. (2) Encounter for well woman exam with routine gynecological exam: Code(s): Z01.419 - Encounter for gynecological examination (general) (routine) without abnormal findings Category: Medical Plan Discussed: Current recommendations for pap smears per ASCCP guidelines. Breast awareness and periodic breast exams. Mammogram yearly. Menopause verses perimenopause. Menopause is definitive of 1 year of no menses or 12 months in succession. Report any abnormal uterine bleeding in example prolonged episodes, or short intervals less than 24 days. Self-help measures. Website information and handouts for further review provided. Maintain a healthy lifestyle including a well balanced diet and routine exercise. Counseled regarding contraindications to estrogen with nicotine use with women over the age of 35. Encouraged vaping cessation. Patient verbalizes understanding and agrees to the plan of care. She was given opportunity to ask questions and all questions were answered to the best of my ability. 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 This note is constructed using voice recognition software. While every effort has been made to ensure accuracy, converting supervisor errors may have been included. Orders: Orders HPV High risk Today Z - Encounter for gynecological examination (general) (routine) without abnormal findings, Z87.42 - Personal history of other diseases of the female genital tract Pap Smear Today Z419 - Encounter for gynecological examination (general) (routine) without abnormal findings, Z87.42 - Personal history of other diseases of the female genital tract Medications: Refilled norethindrone (contraceptive) 0.35 mg PO DAILY 90 tabs 4RF 3 months Coding Level of Care Code Est Pt Prev Care 40-64y(64519) Diagnoses History of abnormal cervical Pap smear Z87.42 Encounter for well woman exam with routine gynecological exam Z
[2025-03-30 07:48] VITALS: BP 124/82; BMI 34.2
== END 2025-03-30 08:31 | disposition home or self-care (01) ==
LOC: HO.HWS 07:38
PROVIDERS: PCP Student in an Organized Health Care Education/Training Program; Visit Provider Advanced Practice Midwife
DX: Z01.419 Encounter for gynecological examination (general) (routine) without abnormal findings (principal); Z87.42 Personal history of other diseases of the female genital tract
CPT/HCPCS: 99396; 99459